=== PATIENT | female | born 1950 | race African-American/Black ===

== ENCOUNTER 2016-12-26 12:22 | Inpatient (IN) | payer MEDICARE, OTHER ==
--- NOTE | ~2016-12-26 | CO ---
Unit #: [id number] #: [id number] Patient: ELIANA HENRIQUEZ [id number] [address] [place], [place] [address] [id number] I MR#: [id number] NAME: ELIANA HENRIQUEZ. ROOM: 323 Age: 66 Sex: F Admission Date: 12/26/2016 : 1950 Attending Physician: Tracee Haji M.D. Primary Care Physician: Compa Arango M.D. Consultation Date: 12/27/2016 CONSULTATION REPORT REASON FOR CONSULTATION Pneumonia. HISTORY OF PRESENT ILLNESS A 66-year-old female, known to Dr. Castellano, who has COPD; chronic respiratory failure; history of pulmonary aspergillosis, unknown details; and ongoing active tobacco use up until recently, presents with a 2-day history of shortness of breath. She had a T-max here in the hospital of 101.3. She now is 99.6. She does feel somewhat better. She has cough, wheeze, thick brown sputum production. She denies chest pain or hemoptysis. PAST MEDICAL HISTORY Remarkable for COPD; chronic respiratory failure; pulmonary aspergillosis, details unclear; coronary artery disease; diastolic dysfunction; diabetes; hypothyroidism; peripheral vascular disease; anemia, MEDICATIONS At home, she has no idea what inhaled medicines or any other medicines that she is on. According to the med rec sheet, she is on aspirin, Lortab, Synthroid, Coreg, Lipitor, glipizide, Ventolin, Plavix, Norvasc, Neurontin, iron, calcitriol, Zyloprim, Humulin. According to the dictated EHR report, she is also on Symbicort and Spiriva. ALLERGIES Levaquin and pineapple. SOCIAL HISTORY EHR states she is still smoking a pack a day. She said she quit 3 months ago. She lives at home by herself. She had amputation on the right late last year and she still does not have a prostatic. FAMILY HISTORY No familial lung disease. REVIEW OF SYSTEMS No chest pain, palpitations, no hemoptysis. No hematemesis, melena, hematochezia, hematuria, dysuria. No unexplained focal weakness, paresthesias. She states she cannot walk, but that is because she has not been fit with her prosthesis. Further review of systems negative. PHYSICAL EXAMINATION GENERAL: Reveals a lady, who is in no acute distress, but does have rhonchi. She had a T-max of 101.3, now 99.6; pulse 91; respiratory rate Unit #: [id number] #: [id number] Patient: ELIANA HENRIQUEZ 17; blood pressure is 144/73. She is 5 feet 7 inches, 224, BMI of 35. HEENT: Pupils are equal, round, and reactive to light. Sclerae anicteric. Head atraumatic. NECK: Supple. No supraclavicular or cervical adenopathy appreciated. Mucous membranes moist. Mallampati class IV oropharynx. CHEST: Expiratory wheeze. Scattered rhonchi. No definite consolidation. CARDIAC: Reveals regular rate and rhythm. No pathologic murmur, rub, or gallop. ABDOMEN: Soft and nontender. No hepatomegaly or rebound. EXTREMITIES: Reveal no clubbing, cyanosis, or edema. No calf tenderness on the left. She is an amputee on the right. It has a very large bandage and protective boot on it. SKIN: Warm and dry. NEUROLOGIC: No definite unexplained focal neurologic deficits. DIAGNOSTIC STUDIES LABORATORY RESULTS: BUN is 14, creatinine is 1.1. Lactic acid 1.1. White blood cell count is 9, hemoglobin 12.7, and platelet count is 149. No eosinophilia. Flu screen negative. Urinalysis; 3+ protein. There was glucosuria. 5 to 10 red cells. Blood cultures performed and are pending. Sputum has not been collected, but in the past she has had Pseudomonas and Aspergillus. IMAGING STUDIES: Chest x-ray, left hemidiaphragm elevation. There are bibasilar infiltrates. CARDIOVASCULAR STUDIES: Rhythm strip, sinus tachycardia. IMPRESSION 1. Pneumonia. 2. Chronic obstructive pulmonary disease with exacerbation and bronchospasm. 3. Chronic respiratory failure. 4. Ongoing active tobacco use, possibly quit recently. 5. Coronary artery disease. 6. Aspergillus in her sputum many years ago, unknown details. PLAN Maximize pulmonary status with steroids and nebulized bronchodilators. Hyperglycemia has been noted, but she is very bronchospastic. Hopefully, she will improve. We can decrease her steroids tomorrow. Agree with current antibiotics and we will adjust as needed after cultures return. Certainly, no smoking is a great benefit. Hopefully, family would be able to bring in her inhaled medications, so we can provide little bit better database. Thank you very much for allowing me to participate in the care of Ms. Henriquez. Dictated by... Viraj Hernandez/uriel TD: 12/27/2016 17:48 JOB #: [id number] CC: Compa Arango M.D. Unit #: [id number] #: [id number] Patient: ELIANA HENRIQUEZ CONSULTATION REPORT X Zane Rico MD X CONSULTATION REPORT
--- NOTE | ~2016-12-26 | CR72 ---
[facility] A Service of [facility] RADIOLOGY TEXT RESULTS PATIENT: ELIANA BOLDEN LOCATION: [facility] : 54 UNIT #: [id number] AGE: [address]: Robe Tamez MD SEX: F ORDER DR: [id number] [facility] [address] [place], [place] [address] [id number] MR#: [id number] #: [id number] NAME: ELIANA BOLDEN. : 1950 SEX: F STUDY DATE/TIME: 12/26/2016 UNIT: [facility] ROOM: STUDY DESCRIPTION: CR Chest Single View Portable Attending Physician: Robe Tamez M.D. Ordering Physician: Ed Lucien Forde M.D. Primary Care Physician: Compa Arango M.D. MEDICAL IMAGING REPORT This report is preliminary unless electronic signature is present EXAM Chest portable 12/26/2016 1144 hours. HISTORY 66-year-old with history of hypertension, diabetes, TIA, COPD and aortic aneurysm complaining of cough and fever for 3 days. COMPARISON 04/30/2016 FINDINGS Portable upright chest demonstrates stable cardiomegaly. There is diffuse interstitial change in both lungs with more focal density in the left retrocardiac region, which could represent atelectasis and/or pneumonia. IMPRESSION 1. Stable cardiomegaly and elevation of the left hemidiaphragm. 2. There is diffuse interstitial change throughout both lungs which could represent interstitial edema or interstitial pneumonitis. There is suggestion of more focal density in the left retrocardiac region which could represent airspace pneumonia or atelectasis. Consider further evaluation with a 2-view chest film to further evaluate the left lung base. Dictated by... Sheeba Murphy M.D. THIS IS AN ELECTRONICALLY VERIFIED REPORT Sheeba Murphy M.D. at 12/26/2016 2:30 PM Venancio [facility] A Service of [facility] RADIOLOGY TEXT RESULTS PATIENT: ELIANA BOLDEN LOCATION: [facility] #: [id number] : [birth year] UNIT #: [id number] AGE: [address]: Robe Tamez MD SEX: F ORDER DR: TD: 12/26/2016 14:19 JOB #: [id number] MEDICAL IMAGING REPORT COPY
--- NOTE | ~2016-12-26 | DS ---
Unit #: [id number] #: [id number] Patient: ELIANA HENRIQUEZ [id number] [address] [address] [id number] I MR#: [id number] NAME: ELIANA HENRIQUEZ. ROOM: 323 Age: 66 Sex: F Admission Date: 12/26/2016 : 1950 Discharge Date: 12/30/2016 Attending Physician: Anastasia Dominguez M.D. Primary Care Physician: Compa Arango M.D. DISCHARGE SUMMARY PRINCIPAL DIAGNOSES 1. Sepsis secondary to community-acquired pneumonia. 2. Acute exacerbation of chronic obstructive pulmonary disease. 3. Diabetes mellitus type 2, insulin requiring and uncontrolled with hemoglobin A1C of 8.6. 4. Chronic hypercapnic hypoxic respiratory failure, maintained on 2 L of oxygen per nasal cannula continuously. 5. Thrombocytopenia. 6. Coronary artery disease. 7. Hypertension. 8. 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 9. Peripheral arterial disease. 10. Obesity. 11. Iron deficiency anemia. 12. Gout. 13. Hypothyroidism. 14. History of pulmonary aspergillosis. 15. Mild protein malnutrition. CONSULTANTS 1. Dr. Rico, pulmonology. 2. Dr. Marrero, endocrinology. PROCEDURES 1. Chest x-ray on December 26, 2016 with cardiomegaly and elevation of the left hemidiaphragm. Diffuse interstitial changes throughout both lungs are noted. There is a more focal density in the left retrocardiac region concerning for pneumonia. 2. Chest x-ray on December 28, 2016 with moderate lung volumes, continued left-sided volume loss with basilar atelectasis. Diffuse interstitial prominence noted. HOSPITAL COURSE Ms. Henriquez is a 66-year-old -Dominican female with a history of chronic respiratory failure, who presents to the emergency department with cough and fever. Please refer to H and P for further details. Patient did have a fever of 101 and chest x-ray was concerning for pneumonia. Her blood pressure was also significantly elevated at 200/97. Patient was subsequently admitted. Patient was placed on broad spectrum antibiotic therapy given recent stay at [place] within the last three months. She was also placed on IV steroids and nebulizer treatments. Dr. Rico was consulted. Sputum has Unit #: [id number] #: [id number] Patient: ELIANA HENRIQUEZ revealed only normal dylon. The patient has remained fever free for several days and does not have any evidence of leukocytosis throughout the hospitalization. I am going to change her to Vantin therapy and she can complete antibiotics as an outpatient. I will also arrange for a home nebulizer if she does not already have one. Patient unfortunately had significant hyperglycemia due to her steroid therapy. Her sugars were running over 500s despite increasing insulin dose. Dr. Marrero was consulted and patient was placed on Humulin N U-100 which I will continue for about a month at home and then she can return to her insulin as she was previously dosing. longterm she would best benefit from a long-acting insulin in addition to NovoLog and/or regular insulin with meals only. This can be further monitored by Dr. Arango. The patient's other chronic conditions remain stable. She will be discharged home later today. DISCHARGE CONDITION Stable. DISCHARGE STATUS Discharge to home. DISCHARGE MEDICATIONS 1. Ventolin inhaler two puffs q.i.d. p.r.n. for shortness of breath. 2. DuoNeb nebulizer treatments 3 mL q.6 h. p.r.n. for shortness of air. 3. Oxygen at 2 L per nasal cannula. 4. Symbicort 160/4.5 mcg two puffs b.i.d. 5. Prednisone 10 mg tablet four tablets for two days then three tablets for two days then two tablets for two days then one tablet for two days then discontinue. 6. Neurontin 400 mg t.i.d. 7. Benadryl 25 mg p.o. b.i.d. p.r.n. for itching. 8. Coreg 6.25 mg p.o. b.i.d. 9. Norvasc 10 mg daily. Note this is a dose increase. 10. Colace 100 mg b.i.d. 11. Lipitor 20 mg q.h.s. 12. Hydralazine 25 mg three tablets p.o. t.i.d. With one refill given. 13. Lisinopril 20 mg b.i.d. 14. Humulin N U-100 40 units subcu before breakfast while on prednisone. This can be dropped off if any hypoglycemia. 15. She will continue a regular insulin sliding scale with meals. 16. Ferrous gluconate 324 mg daily. 17. Allopurinol 100 mg daily. 18. Aspirin 81 mg daily. 19. Lortab 10/325 one to two tablets p.o. q.6 h. p.r.n. for pain. 20. Plavix 75 mg daily. 21. Levothyroxine 50 mcg daily. 22. Calcitriol 0.25 mcg daily. 23. Vantin 200 mg p.o. b.i.d. for seven days. Please note I have discontinued glipizide given I do not suspect the patient is getting much benefit. DISCHARGE INSTRUCTIONS 1. The patient was instructed to follow a heart-healthy CC diet. 2. She is to continue Accu-Cheks at least three times daily at home. 3. She can increase her activity as tolerate. Unit #: [id number] #: [id number] Patient: ELIANA HENRIQUEZ 4. To wear her oxygen at all times. FOLLOWUP 1. The patient will follow up with Dr. Castellano per his instructions. 2. She should follow up with Dr. Arango in two weeks. Time spent on discharge 47 minutes. Dictated by... Anastasia Dominguez M.D. DIANA/kristina TD: 01/01/2017 21:05 JOB #: [id number] DISCHARGE SUMMARY X Anastasia Dominguez MD X DISCHARGE SUMMARY
--- NOTE | ~2016-12-26 | DS ---
Unit #: [id number] #: [id number] Patient: ELIANA BOLDEN [id number] [address] [place], [place] [address] [id number] I MR#: [id number] NAME: ELIANA BOLDEN. ROOM: 323 Age: 66 Sex: F Admission Date: 12/26/2016 : 1950 Discharge Date: 01/03/2017 Attending Physician: Anastasia Dominguez M.D. Primary Care Physician: Compa Arango M.D. DISCHARGE SUMMARY PRINCIPAL DIAGNOSES (CONTINUED) 16. Symptomatic gastroesophageal reflux disease. PROCEDURES (CONTINUED) 3. Chest x-ray on December 31, 2016, with no significant change in bibasilar infiltrate. HOSPITAL COURSE (CONTINUED) Patient was not discharged home upon previous discharge date given she was still having significant sputum production. Unfortunately, she continued to have significant wheezing and cough and required some extra doses of Depo-Medrol. Sputum culture remained negative. After Depo-Medrol, in addition to PPI therapy as outlined below, patient's breathing has improved significantly. She has completed an eight-day course of cefepime in the hospital, and while likely treatment is appropriate, she does have a consolidative change in her left base, so I am going to give her a few more days of Vantin to take as an outpatient. She will see Dr. Castellano in one week and will have a CT of the chest as an outpatient if no improvement on chest x-ray. Patient kept complaining of chest pain which was always nocturnal. Troponin was unremarkable, and EKG was unremarkable. A followup chest x-ray was without change. I placed her on PPI therapy and her symptoms improved significantly. This may have been contributing perhaps to her wheezing and will continue her on PPI therapy at home. Today, patient is clinically stable and will be discharged home. DISCHARGE CONDITION Stable. DISCHARGE STATUS Discharge to home. DISCHARGE MEDICATIONS 1. Ventolin inhaler 2 puffs 4 times daily p.r.n. for shortness of breath. 2. Combivent nebulizer treatments 3 mL 4 times daily p.r.n. for shortness of breath. 3. Symbicort 160/4.5 mcg 2 puffs b.i.d. 4. Prednisone 10 mg tablets, 4 tablets daily for 3 days, then 3 tablets for 3 days, then 2 tablets for 3 days, then 1 tablet for 3 days, then discontinue. 5. Neurontin 400 mg t.i.d. 6. Benadryl 25 mg q.12 hours p.r.n. for itching. Unit #: [id number] #: [id number] Patient: ELIANA BOLDEN 7. Coreg 6.25 mg b.i.d. 8. Norvasc 10 mg daily. 9. Colace 100 mg b.i.d. 10. Lipitor 20 mg at bedtime. 11. Hydralazine 25 mg 3 tablets p.o. t.i.d. 12. Lisinopril 20 mg b.i.d. 13. Humulin R sliding scale with meals. 14. Humulin N U-100 at 50 units subcutaneously daily before breakfast only while on prednisone, then this should be discontinued. 15. Ferrous sulfate 325 mg daily. 16. Allopurinol 100 mg daily. 17. Aspirin 81 mg daily. 18. Lortab 10/325 at 1-2 tablets p.o. q.6 hours p.r.n. for pain, number given 40. 19. Plavix 75 mg daily. 20. Protonix 40 mg b.i.d. 21. Glipizide 10 mg b.i.d. 22. Levothyroxine 50 mcg p.o. daily. 23. Calcitriol 0.25 mcg p.o. daily. 24. Vantin 200 mg p.o. b.i.d. for another 6 days. DISCHARGE INSTRUCTIONS 1. Patient was instructed to follow a heart-healthy diet. 2. She will continue Accu-Cheks as previously dictated. 3. She will increase her activity as tolerated. FOLLOWUP Patient will follow up with Dr. Castellano in one week and will have a chest x-ray at that time. If infiltrate persists greater than three to four weeks, she will have a CT scan of the chest. She will follow up with her primary care physician as previously dictated. Time spent on discharge 35 minutes. Dictated by... Anastasia Dominguez M.D. Itz TD: 01/04/2017 20:59 JOB #: [id number] DISCHARGE SUMMARY X Anastasia Dominguez MD DISCHARGE SUMMARY
--- NOTE | ~2016-12-26 | EKG ---
PATIENT: ELIANA BOLDEN UNIT #: [id number] Ventricular Rate: 81 BPM Atrial Rate: 81 BPM P-R Interval: 160 ms QRS Duration: 106 ms Q-T Interval: 386 ms QTC Calculation(Bezet): 448 ms P Prince: 41 degrees Calculated R Prince: -37 degrees Calculated T Prince: 12 degrees Diagnosis Line: Normal sinus rhythm Diagnosis Line: Left axis deviation Diagnosis Line: Otherwise normal ECG Diagnosis Line: When compared with ECG of 26-FEB-2016 06:05, Diagnosis Line: Non-specific change in ST segment in Anterior Diagnosis Line: leads Diagnosis Line: T wave inversion no longer evident in Inferior Diagnosis Line: leads Diagnosis Line: T wave inversion no longer evident in Anterior Diagnosis Line: leads Diagnosis Line: QT has shortened Diagnosis Line: Confirmed by MARGUERITE CLEMONS MD ([id number]) on 01/01/2017 Diagnosis Line: 6:20:16 PM INTERPRETING MD: DEONTE BARAHONA
--- NOTE | ~2016-12-26 | HP ---
Unit #: [id number] #: [id number] Patient: ELIANA BOLDEN [id number] [address] [place], [place] [address] [id number] I MR#: [id number] NAME: ELIANA BOLDEN. ROOM: 08064 Age: 66 Sex: F Admission Date: 12/26/2016 : 1950 Attending Physician: Tracee Haji M.D. Primary Care Physician: Compa Arango M.D. HISTORY AND PHYSICAL CHIEF COMPLAINT Cough and fever for three days. HISTORY OF PRESENT ILLNESS The patient is a 66-year-old female with a history of COPD, chronic respiratory failure, coronary artery disease, diastolic dysfunction, hypertension, brought to the emergency room with a cough and fever for the last three days. The patient stated the patient has been short of breath associated with a productive cough mixed with a blood streak and fever high up to 101.3. The patient had a chest x-ray that shows concerning for the pneumonia/pneumonitis and patient is being admitted for the above reasons. The patient's blood pressure is 200/97 and the lactate is 1.1. PAST MEDICAL HISTORY COPD, chronic respiratory failure, history of pulmonary aspergillosis, hypertension, type 2 diabetes mellitus, hyperlipidemia, coronary artery disease, status post PTCA, chronic diastolic congestive heart failure, hypothyroidism, peripheral vascular disease, aortic aneurysm, history of iron deficiency anemia, history of a chronic hypoxic hypercarbic respiratory failure. PAST SURGICAL HISTORY Abdominal aortic aneurysm with subsequent bilateral lower extremity paralysis, left carotid endarterectomy, and the status post right below the knee amputation. ALLERGIES Levaquin and pineapple. HOME MEDICATIONS She is on aspirin, Lortab, Lotensin, Klonopin, Lantus, Dulcolax, levothyroxine, Coreg, Lipitor, glipizide, K-Dur, Ventolin, Plavix, Aldactone, Prilosec, Spiriva, Symbicort, furosemide, Augmentin. SOCIAL HISTORY Continues to smoke half a pack per day, no alcohol use at home, no illicit drug abuse, wheelchair bound due to paralysis. FAMILY HISTORY Positive for coronary artery disease. REVIEW OF SYMPTOMS Unit #: [id number] #: [id number] Patient: ELIANA BOLDEN Fourteen-point review of symptoms performed and only pertinent positive findings as described above. PHYSICAL EXAMINATION GENERAL APPEARANCE: On examination the patient is lying on a bed not in acute distress. VITAL SIGNS: Temperature 101.3, pulse 112, respiratory rate 27, blood pressure 200/97, sating 92% at 2 L nasal cannula. HEENT: Head atraumatic, normocephalic. Pupils equal, round and reacting to light and accommodation. Poor dentition. Missing teeth. NECK: Supple. Trachea midline. LUNGS: Decreased breath sounds. Crackles in the bases. Prolonged expiratory phase. CARDIAC: Heart sounds distant. Regular rate and rhythm. ABDOMEN: Soft, positive bowel sounds. EXTREMITIES: Status post right BKA. NEUROLOGIC: Awake, alert and oriented. DIAGNOSTIC STUDIES LABORATORY DATA: Glucose 332, BUN 12, creatinine 0.8, sodium 135, potassium 3.5, chloride 100, bicarb 29, calcium 8.6, total protein 7.1, AST 19, ALT 14, lactic acid is 1.1, WBCs 6.2, hemoglobin 12, hematocrit 38.1, platelets 133. UA shows 3+ protein, 500 glucose, 2+ blood. Flu screen is negative. IMAGING: Chest x-ray shows the interstitial pneumonitis versus pneumonia. ASSESSMENT 1. Pneumonia/pneumonitis. 2. Chronic obstructive pulmonary disease on home oxygen. 3. Chronic respiratory failure. 4. Uncontrolled diabetes mellitus. PLAN 1. Plan to admit the patient to the inpatient with the telemetry. 2. Continuer with the IV antibiotics with the Maxipime and Zithromax. 3. Continue with the nebs. 4. Check the ABG and chest x-ray PA and lateral view at a.m. 5. Will have the pulmonary consult as the patient has been known to the pulmonary team. 6. Repeat the labs again in the morning. 7. Further recommendations will follow as more lab results are available. Dictated by Viraj Mccarty TD: 12/26/2016 17:38 JOB #: [id number] Unit #: [id number] #: [id number] Patient: ELIANA BOLDEN HISTORY AND PHYSICAL X X HISTORY AND PHYSICAL
--- NOTE | ~2016-12-26 | CR72 ---
[facility] A Service of [facility] RADIOLOGY TEXT RESULTS PATIENT: ELIANA BOLDEN LOCATION: [facility] : 54 UNIT #: [id number] AGE: [address]: Anastasia Dominguez MD SEX: F ORDER DR: [id number] [facility] [address] [place], [place] [address] [id number] I MR#: [id number] Acc #: [id number] NAME: ELIANA BOLDEN. : 1950 SEX: F STUDY DATE/TIME: 12/31/2016 6:23 UNIT: [address] ROOM: [facility] STUDY DESCRIPTION: CR Chest Single View Portable Attending Physician: Anastasia Dominguez M.D. Ordering Physician: Shamir Castellano M.D. Primary Care Physician: Compa Arango M.D. MEDICAL IMAGING REPORT This report is preliminary unless electronic signature is present EXAM Portable chest 12/31/2016 HISTORY 66-year-old female with shortness of air and fever for 5 days. Cough. Hypertension. COMPARISON Chest 12/28/2016. FINDINGS Frontal chest demonstrates persistent mild bibasilar atelectasis. No pneumothorax. Heart size and mediastinum within normal limits. Pulmonary vasculature is unremarkable. IMPRESSION No significant change in bibasilar atelectasis/infiltrate. Dictated by... Edison Ayon M.D. THIS IS AN ELECTRONICALLY VERIFIED REPORT Edison Ayon M.D. at 12/31/2016 3:54 PM OCTAVIO/kvng TD: 12/31/2016 10:15 JOB #: [id number] MEDICAL IMAGING REPORT COPY
--- NOTE | ~2016-12-26 | CR72 ---
[facility] A Service of [facility] RADIOLOGY TEXT RESULTS PATIENT: ELIANA BOLDEN LOCATION: [facility] 323- : [birth year] UNIT #: [id number] AGE: [address]: Anastasia Dominguez MD SEX: F ORDER DR: [id number] [facility] [address] [place], [place] [address] [id number] I MR#: [id number] Acc #: [id number] NAME: ELIANA BOLDEN. : 1950 SEX: F STUDY DATE/TIME: 12/28/2016 17:38 UNIT: [address] ROOM: [facility] STUDY DESCRIPTION: CR Chest Single View Portable Attending Physician: Tracee Haji M.D. Ordering Physician: Zane Rico M.D. Primary Care Physician: Compa Arango M.D. MEDICAL IMAGING REPORT This report is preliminary unless electronic signature is present EXAM Portable chest HISTORY Cough, congestion, fever, shortness of air x2 weeks. COMPARISON 12/26/2016 FINDINGS Study demonstrates moderate lung volumes. Radiodensity projects over the left lower chest presumably artifact. Continued left-sided volume loss with probable left basilar atelectasis. A small amount of right basilar atelectasis as well as diffuse interstitial prominence could represent background interstitial disease or fibrosis or edema. Upper lungs remain clear. Heart size within normal limits. Mediastinum unremarkable. No invasive tubes or lines. No visible pneumothorax. Dictated by... Brendan Ackerman M.D. THIS IS AN ELECTRONICALLY VERIFIED REPORT Brendan Ackerman M.D. at 12/29/2016 5:04 PM Dannielle TD: 12/29/2016 07:47 JOB #: [id number] MEDICAL IMAGING REPORT COPY
--- NOTE | ~2016-12-26 | CO ---
Unit #: [id number] #: [id number] Patient: ELIANA BOLDEN [id number] [address] [place], [place] [address] [id number] I MR#: [id number] NAME: ELIANA BOLDEN. ROOM: 323 Age: 66 Sex: F Admission Date: 12/26/2016 : 1950 Attending Physician: Anastasia Dominguez M.D. Primary Care Physician: Compa Arango M.D. Consultation Date: 12/29/2016 CONSULTATION REPORT HISTORY OF PRESENT ILLNESS This is a 66-year-old female with history of type 2 diabetes mellitus, COPD, chronic respiratory failure, active tobacco use, who has been admitted with shortness of air and pneumonia and COPD exacerbation. She is being treated with the IV steroids. Her blood sugar has been running 4 to 500 mg/dL. I note the patient's Solu-Medrol was discontinued just now. Blood sugar has been still. Just now she has been switched to prednisone starting tomorrow. I have been asked to see the patient for further management. PAST MEDICAL HISTORY COPD, chronic respiratory failure, coronary artery disease, type 2 diabetes mellitus, hypothyroidism, peripheral vascular disease, pulmonary aspergillosis, and anemia. HOME MEDICATIONS List is reviewed. The patient was taking glipizide and some Humulin insulin at home on unknown doses. Other medication list includes Synthroid, Coreg, Ventolin, Plavix, Norvasc, Neurontin, calcitriol. ALLERGIES To Levaquin and pineapple. SOCIAL HISTORY Continues to smoke about a pack per day. Lives by herself. PAST SURGICAL HISTORY Abdominal aortic aneurysm surgery, left carotid endarterectomy, right below-knee amputation. REVIEW OF SYSTEMS A 10-point review of systems is completed, please see HPI. PHYSICAL EXAMINATION GENERAL: She is awake, alert, oriented to time, place, and person. VITAL SIGNS: Stable. Temperature 98.1, pulse 91, respirations 16, and blood pressure is 172/80. HEENT: EOMI. Pupils equally reactive to light. NECK: Supple. No thyromegaly noted. CHEST: Good air entry. CVS: Regular rhythm. No murmurs. ABDOMEN: Soft, nontender. Bowel sounds positive. EXTREMITIES: Right below-knee amputations. Unit #: [id number] #: [id number] Patient: ELIANA BOLDEN DIAGNOSTIC STUDIES LABORATORY RESULTS: Reviewed. Creatinine is 1.0. A1c is 8.6. ASSESSMENT 1. Type 2 diabetes mellitus with acute hyperglycemia secondary to IV steroids. 2. Acute on chronic respiratory failure. PLAN Discontinue Levemir. Start the patient on the NPH 40 units before each prednisone dose. NovoLog 10 units each meal. Continue medium dose supplement sliding scale. Continue to monitor Accu-Cheks q.4 hours. Cover with supplemental insulin as needed. We will continue for further management. Dictated by... Viraj Contreras/uriel TD: 12/30/2016 05:02 JOB #: [id number] CONSULTATION REPORT X Yuniel Marrero MD X CONSULTATION REPORT
[~2016-12-26 12:22] MED LIST: ACETAMINOPHEN PO; ALBUTEROL MININEB NEB; ALBUTEROL17 GM INH; ALDACTONE25 MG PO; AMLODIPINE BESY10 MG PO; ASPIRIN EC81 M1 PO; ASPIRIN81 M1 PO; ASPIRIN81 M2 PO; ASPIRIN81 MG PO; ATORVASTATIN CA80 MG PO; ATRAC-TAIN142 GM TOP; ATRAC-TAIN142 GM TP; AUGMENTIN PO; AUGMENTIN875 M1 DOB; AUGMENTIN875 MG PO; BACTRIM DS TABL1 TAB PO; BACTROBAN22 GM TP; BENAZEPRIL HCL40 MG PO; BENAZEPRIL PO; BENZAPRIL PO; CARVEDILOL12.5 MG PO; CARVEDILOL3.125 MG PO; CLOPIDOGREL75 MG PO; COLACE PO; COMBIVENT INH14.7 GM INH; COMBIVENT RESPIM4 GM IH; COREG12.5 MG PO; COREG3.125 MG PO; DAKIN'S MODIF1000 ML EXT; DIFLUCAN PO; DOXEPIN PO; DULCOLAX5 MG PO; EFFER-K 20 MEQ20 MEQ PO; FERROUS GLUCON324 MG PO; FLAGYL PO; FUROSEMIDE40 MG PO; GABAPENTIN300 M2 PO; GABAPENTIN300 MG PO; GLIPIZIDE10 MG PO; GLUCOPHAGE500 MG; GLUCOTROL PO; GLUCOTROL10 MG PO; GRANULEX SPR113.4 GM TOP; HYDRALAZINE HC100 MG; HYDRALAZINE HCL25 MG PO; HYDROCODONE-APA1 T54 PO; IMDUR-ER60 M1 DOB; IMODIUM2 MG PO; K-DUR20 ME1 PO; KCL PO; KLONOPIN1 MG PO; KLOR-CON PO; LANTUS100 U/ML SUBQ; LASIX PO; LEVAQUIN PO; LEVOTHROID25 MCG PO; LEVOTHYROXINE25 MCG PO; LIPITOR PO; LIPITOR20 MG PO; LIPITOR80 MG PO; LISINOPRIL PO; LOPRESSOR PO; LORTAB 10-3251 EACH PO; LORTAB 10/500 T1 TAB PO; LORTAB 101 TAB 10/5 PO; LORTAB PO; LOTENSIN PO; LOTENSIN40 MG PO; MAG-OX 400400 M1 DOB; MAGOX 400400 MG PO; METFORMIN HCL500 M1 PO; METFORMIN PO; MICRONASE5 M2 PO; NEURONTIN PO; NEURONTIN300 MG PO; NITROSTAT0.4 MG SL; NORCO1 TAB 10/3 PO; NORVASC PO; OMNICEF300 MG PO; PERCOCET5/325 PO; PREDNISONE5 MG PO; PRILOSEC PO; PRILOSEC20 M1 PO; SPIRIVA18 MCG INH; SYMBICORT INH; SYNTHROID PO; TYLOX 5/500 CAP1 CAP PO; VOLTAREN75 MG PO; Z-PACK; [UNRECOGNIZED DRUG - OTHER] PO; [UNRECOGNIZED DRUG - REMARK]
[2016-12-26 13:21] LABS: INFLUENZA A NEG (NEG); INFLUENZA B NEG (NEG)
[2016-12-26 13:49] LABS: URINE SOURCE CLEAN CATCH
[2016-12-26 14:08] LABS: URINE APPEARANCE CLEAR; URINE BILIRUBIN NEG (NEG); URINE BLOOD 2+ (NEG); URINE COLOR YELLOW; URINE GLUCOSE 500 MG/DL (NEG); URINE KETONE NEG (NEG); URINE LEUKOCYTE ESTERASE NEG (NEG); URINE NITRATE NEG (NEG); URINE PH 6.5 (5-8); URINE PROTEIN 3+ (NEG); URINE SPECIFIC GRAVITY 1.014 (1.003-1.035); URINE UROBILINOGEN 0.2 MG/DL (NEG)
[2016-12-26 14:11] LABS: URINE BACTERIA AUWI NEG (NEGATIVE); URINE SQUAMOUS EPITHELIAL CELL NONE SEEN /[HPF]; UWBCS1 AUWI 0-2 (0-5)
[2016-12-26 14:13] LABS: CULTURE INDICATED? NO
[2016-12-26 14:22] LABS: BASOPHIL% 0.7 % (0-2.5); HEMATOCRIT 38.1 % (35.0-45.0); LYMPHOCYTE# 0.8 X10e3 (1.0-3.5); LYMPHOCYTE% 12.8 % (17.0-45.0); MEAN CELL VOLUME 88.8 FL (83-96); MEAN CORPUSCULAR HGB CONC 31.5 g/dL (30-36); MEAN PLATELET VOLUME 9.3 FL (6.5-11.5); MONOCYTE# 0.8 X10e3 (0-1.0); MONOCYTE% 13.5 % (3.0-12.0); NEUTROPHIL# 4.5 X10e3 (1.5-7.1); PLATELET COUNT 133 X10e3 (140-420); RED BLOOD COUNT 4.29 X10e (3.90-5.30); RED CELL DISTRIBUTION WIDTH 15.9 % (11.0-15.5); WHITE BLOOD COUNT 6.2 X10e3 (4.0-10.5)
[2016-12-26 14:30] LABS: DIFF IND NO
[2016-12-26 14:51] LABS: ALBUMIN SERUM 3.3 g/dL (3.5-5.0); ALKALINE PHOSPHATASE 84 U/L (32-92); ALT (SGPT) 14 U/L (10-40); AST (SGOT) 19 U/L (10-42); BILIRUBIN, DIRECT 0.1 mg/dL (0.0-0.2); BILIRUBIN,INDIRECT 0.3 mg/dL (0.0-0.9); BILIRUBIN,TOTAL 0.4 mg/dL (0.2-2.0); BLOOD UREA NITROGEN 12 mg/dL (9-23); CALCIUM SERUM 8.6 mg/dL (8.4-10.2); CARBON DIOXIDE 29 mmol/L (22-31); CHLORIDE 100 mmol/L (100-111); CREATININE SERUM 0.8 mg/dL (0.6-1.4); GLOM FILT RATE Estimated ABOVE60 mL/min (>60); GLUCOSE FASTING 332 mg/dL (70-110); POTASSIUM 3.5 mmol/L (3.5-5.1); PROTEIN TOTAL SERUM 7.1 g/dL (6.0-8.3); SODIUM 135 mmol/L (135-145)
[2016-12-26] MEDS ORDERED: AMLODIPINE BESYL5 MG PO (18:50)
[2016-12-26] MEDS ORDERED: ALLERGY RELIEF25 MG PO (18:51)
[2016-12-26] MEDS ORDERED: FEOSOL PO (18:52)
[2016-12-26] MEDS ORDERED: CALCITRIOL0.25 MC1 PO (18:53)
[2016-12-26] MEDS ORDERED: ZYLOPRIM100 MG PO (18:54)
[2016-12-26] MEDS ORDERED: HUMULIN R500 U/ML (18:55)
[2016-12-26] MEDS ORDERED: DOCUSATE SODIU100 MG PO (18:56)
[2016-12-26] MEDS ORDERED: NEURONTIN100 MG PO (18:57)
[2016-12-27 05:57] LABS: BASOPHIL% 0.5 % (0-2.5); EOSINOPHIL# 0.1 X10e3 (0-0.7); EOSINOPHIL% 0.6 % (0.0-7.0); HEMATOCRIT 40.4 % (35.0-45.0); HEMOGLOBIN 12.7 gm/dL (12.0-16.0); LYMPHOCYTE# 1.1 X10e3 (1.0-3.5); MEAN CELL VOLUME 89.7 FL (83-96); MEAN CORPUSCULAR HEMOGLOBIN 28.2 PG (28-34); MEAN CORPUSCULAR HGB CONC 31.4 g/dL (30-36); MEAN PLATELET VOLUME 10.5 FL (6.5-11.5); NEUTROPHIL# 6.8 X10e3 (1.5-7.1); NEUTROPHIL% 75.9 % (40-75); PLATELET COUNT 149 X10e3 (140-420); RED CELL DISTRIBUTION WIDTH 15.8 % (11.0-15.5)
[2016-12-27 05:59] LABS: DIFF IND NO
[2016-12-27 06:32] LABS: BLOOD UREA NITROGEN 14 mg/dL (9-23); BUN/CREATININE RATIO 12.72; CARBON DIOXIDE 28 mmol/L (22-31); CHLORIDE 103 mmol/L (100-111); CREATININE SERUM 1.1 mg/dL (0.6-1.4); GLOM FILT RATE Estimated ABOVE60 mL/min (>60); GLUCOSE FASTING 304 mg/dL (70-110); POTASSIUM 3.7 mmol/L (3.5-5.1); SODIUM 135 mmol/L (135-145)
[2016-12-28 05:57] LABS: HEMATOCRIT 39.5 % (35.0-45.0); HEMOGLOBIN 12.2 gm/dL (12.0-16.0); MEAN CELL VOLUME 90.3 FL (83-96); MEAN CORPUSCULAR HEMOGLOBIN 27.8 PG (28-34); MEAN CORPUSCULAR HGB CONC 30.8 g/dL (30-36); MEAN PLATELET VOLUME 10.7 FL (6.5-11.5); RED BLOOD COUNT 4.37 X10e (3.90-5.30); RED CELL DISTRIBUTION WIDTH 15.5 % (11.0-15.5); WHITE BLOOD COUNT 6.7 X10e3 (4.0-10.5)
[2016-12-28 06:34] LABS: BLOOD UREA NITROGEN 20 mg/dL (9-23); BUN/CREATININE RATIO 22.22; CALCIUM SERUM 8.7 mg/dL (8.4-10.2); CARBON DIOXIDE 29 mmol/L (22-31); CHLORIDE 99 mmol/L (100-111); CREATININE SERUM 0.9 mg/dL (0.6-1.4); GLOM FILT RATE Estimated ABOVE60 mL/min (>60); GLUCOSE FASTING 430 mg/dL (70-110); MAGNESIUM 1.7 mg/dL (1.6-3.0); POTASSIUM 4.3 mmol/L (3.5-5.1); SODIUM 136 mmol/L (135-145)
[2016-12-29 04:15] LABS: BLOOD UREA NITROGEN 25 mg/dL (9-23); CALCIUM SERUM 8.4 mg/dL (8.4-10.2); CARBON DIOXIDE 24 mmol/L (22-31); CHLORIDE 102 mmol/L (100-111); GLOM FILT RATE Estimated ABOVE60 mL/min (>60); MAGNESIUM 1.8 mg/dL (1.6-3.0); POTASSIUM 5.3 mmol/L (3.5-5.1); SODIUM 130 mmol/L (135-145)
[2016-12-29 04:18] LABS: GLUCOSE FASTING 565 mg/dL (70-110)
[2016-12-29 17:45] LABS: IRON SERUM 114 ug/dL (28-170); TOTAL IRON BINDING CAPACITY 249 ug/dL (269-535); TRANSFERRIN 178 mg/dL (192-382); TRANSFERRIN SATURATION 46 % (20-50)
[2016-12-30 09:00] LABS: HEMATOCRIT 40.6 % (35.0-45.0); MEAN CELL VOLUME 87.6 FL (83-96); MEAN CORPUSCULAR HGB CONC 31.9 g/dL (30-36); MEAN PLATELET VOLUME 10.1 FL (6.5-11.5); RED BLOOD COUNT 4.64 X10e (3.90-5.30); RED CELL DISTRIBUTION WIDTH 15.4 % (11.0-15.5); WHITE BLOOD COUNT 8.6 X10e3 (4.0-10.5)
[2016-12-30 09:40] LABS: BLOOD UREA NITROGEN 31 mg/dL (9-23); BUN/CREATININE RATIO 38.75; CALCIUM SERUM 9.1 mg/dL (8.4-10.2); CARBON DIOXIDE 29 mmol/L (22-31); CHLORIDE 99 mmol/L (100-111); CREATININE SERUM 0.8 mg/dL (0.6-1.4); GLOM FILT RATE Estimated ABOVE60 mL/min (>60); GLUCOSE FASTING 270 mg/dL (70-110); POTASSIUM 3.8 mmol/L (3.5-5.1); SODIUM 135 mmol/L (135-145)
[2016-12-30] MEDS ORDERED: HUMULIN N100 U/ML SUBQ (18:24)
[2016-12-31 14:35] LABS: LEGIONELLA AG URINE NEG (NEG)
[2017-01-01 06:40] LABS: HEMATOCRIT 38.1 % (35.0-45.0); HEMOGLOBIN 11.9 gm/dL (12.0-16.0); MEAN CELL VOLUME 87.4 FL (83-96); MEAN CORPUSCULAR HEMOGLOBIN 27.4 PG (28-34); MEAN CORPUSCULAR HGB CONC 31.3 g/dL (30-36); MEAN PLATELET VOLUME 10.1 FL (6.5-11.5); RED BLOOD COUNT 4.35 X10e (3.90-5.30); RED CELL DISTRIBUTION WIDTH 15.1 % (11.0-15.5); WHITE BLOOD COUNT 7.4 X10e3 (4.0-10.5)
[2017-01-01 07:13] LABS: BLOOD UREA NITROGEN 24 mg/dL (9-23); CALCIUM SERUM 8.2 mg/dL (8.4-10.2); CARBON DIOXIDE 28 mmol/L (22-31); CHLORIDE 104 mmol/L (100-111); CREATININE SERUM 0.8 mg/dL (0.6-1.4); GLOM FILT RATE Estimated ABOVE60 mL/min (>60); GLUCOSE FASTING 155 mg/dL (70-110); POTASSIUM 3.4 mmol/L (3.5-5.1); SODIUM 140 mmol/L (135-145)
[2017-01-02] MEDS ORDERED: LISINOPRIL20 MG PO (18:49)
[2017-01-02] MEDS ORDERED: COMBIVENT U/D3 M2 INH (18:50)
[2017-01-02] MEDS ORDERED: SYMBICORT INH (18:51)
[2017-01-02] MEDS ORDERED: HYDRALAZINE HCL25 MG PO (18:53)
[2017-01-02] MEDS ORDERED: PREDNISONE10 MG PO (18:53)
[2017-01-02] MEDS ORDERED: PROTONIX PO (18:54)
[2017-01-02] MEDS ORDERED: VANTIN200 MG PO (18:55)
== END 2017-01-03 01:13 | disposition home health service (06) | DRG 871 ==
LOC: CED 12:22 → CEDOF 16:50 → C3A PCU 18:00
PROVIDERS: Emergency Medicine; Internal Medicine
DX: A41.9 Sepsis, unspecified organism (principal); J18.9 Pneumonia, unspecified organism; J96.21 Acute and chronic respiratory failure with hypoxia; J96.22 Acute and chronic respiratory failure with hypercapnia; J44.1 Chronic obstructive pulmonary disease with (acute) exacerbation; E44.1 Mild protein-calorie malnutrition; Z99.81 Dependence on supplemental oxygen; E11.65 Type 2 diabetes mellitus with hyperglycemia; I25.10 Atherosclerotic heart disease of native coronary artery without angina pectoris; E03.9 Hypothyroidism, unspecified; I73.9 Peripheral vascular disease, unspecified; Z79.4 Long term (current) use of insulin; F17.210 Nicotine dependence, cigarettes, uncomplicated; T38.0X5A Adverse effect of glucocorticoids and synthetic analogues, initial encounter; E66.01 Morbid (severe) obesity due to excess calories; M62.3 Immobility syndrome (paraplegic); K59.00 Constipation, unspecified; G89.29 Other chronic pain; K21.9 Gastro-esophageal reflux disease without esophagitis; I71.4 Abdominal aortic aneurysm, without rupture; G83.89 Other specified paralytic syndromes; M10.9 Gout, unspecified; Z68.35 Body mass index [BMI] 35.0-35.9, adult
CPT/HCPCS: 36415; 71010; 80048; 80076; 81003; 82947; 83036; 83540; 83550; 83605; 83735; 84132; 84484; 85025; 85027; 87040; 87070; 87205; 87449; 87804; 87899; 93005; 94640; 94760; 96361; 96365; 96375; 97110; 97163; 97530; 99285; G8978-GP; G8979-GP; J0360; J0456; J0692; J1040; J1815; J1885; J2270; J2543; J2920; J3260; J3370

== ENCOUNTER 2017-05-23 12:52 | Inpatient (IN) | payer MEDICARE, OTHER ==
[~2017-05-23] VITALS: Ht 170.2 cm; Wt 91.4 kg
--- NOTE | ~2017-05-23 | DS ---
Unit #: [id number] #: [id number] Patient: ELIANA BOLDEN [id number] [place] [id number] [facility]. [place], [place] [address] [id number] I MR#: [id number] NAME: ELIANA BOLDEN ROOM: 469 Age: 66 Sex: F Admission Date: 05/23/2017 : 1950 Discharge Date: 06/03/2017 Attending Physician: Vinicius Thao M.D. Primary Care Physician: Compa Arango M.D. DISCHARGE SUMMARY DISCHARGE DIAGNOSES 1. Right buttocks cellulitis and abscess status post incision and drainage. 2. Hypokalemia. 3. Acute kidney injury. 4. Chronic obstructive pulmonary disease, oxygen dependent. 5. Right below knee amputation. 6. Diastolic dysfunction. 7. Congestive heart failure. 8. Left leg deep vein thrombosis. 9. Acute bleed from right buttocks wound status post resolution. CONSULTANTS 1. Anthony Hong M.D., [facility], incision and drainage. 2. Dr. Law, cardiology, for congestive heart failure. 3. Dr. Constantino Rowe, nephrology, for acute renal failure. 4. Dr. Marrero, endocrinology, for diabetes mellitus. PROCEDURES Sharp excision and debridement of skin and subcutaneous right gluteal tissue for incision and drainage of gluteal abscess. HOSPITAL COURSE This 66-year-old woman with multiple co-morbidities presented with symptoms of fever and swelling, redness, tenderness over the right buttocks, which had increased in size. CAT scan of the abdomen and pelvis demonstrated cellulitis with abscess of the right gluteal soft tissue. The patient was started on empiric IV broad-spectrum antibiotics, Zosyn and vancomycin. She then subsequently underwent incision and drainage of the abscess. Also during her admission, her diabetes was managed with long-acting Levemir insulin and sliding scale insulin coverage. During her admission she was noted to have left leg DVT, which was treated with subcu Lovenox. The Lovenox, then, was transitioned to Eliquis. However, she developed right gluteal bleed. Eliquis was discontinued, following which there was no further bleeding, and Lovenox was resumed for treatment of DVT. The patient is being discharged today to correction facility. Discharge vitals are stable. Hemoglobin is stable. The right gluteal wound demonstrates good granulation tissue. No further bleeding. Her left lower extremity swelling has improved on anticoagulation for treatment of DVT. Her blood sugar is controlled on her current regimen of insulin. Patient Unit #: [id number] #: [id number] Patient: ELIANA BOLDEN will be discharged to correction facility for continued rehabilitation. DISCHARGE MEDICATIONS 1. Combivent Mini-Neb q.i.d. inhaled. 2. Combivent Mini-Neb q.4 hours p.r.n. 3. Gabapentin 400 mg p.o. t.i.d. 4. Magnesium oxide p.o. daily. 5. Benadryl 25 mg p.o. q.12 p.r.n. itching. 6. Levothyroxine 50 mcg p.o. daily. 7. Clonazepam 2 mg p.o. at bedtime. 8. Coreg 6.25 mg p.o. b.i.d. 9. Amlodipine 5 mg p.o. daily. 10. Colace 100 mg p.o. b.i.d. 11. Furosemide 40 mg p.o. b.i.d. 12. Lipitor 20 mg p.o. at bedtime. 13. Lisinopril 20 mg p.o. b.i.d. 14. Ferrous gluconate 325 mg p.o. daily. 15. Allopurinol 100 mg p.o. daily. 16. Aspirin 81 mg p.o. daily. 17. Percocet 10/325 mg tab 1 p.o. q.6 p.r.n. pain. 18. Protonix 40 mg p.o. b.i.d. 19. Calcitriol 0.25 mcg p.o. daily. 20. Lovenox 90 mg subcu q.12 hours. 21. B complex multivitamin tab 1 p.o. once daily. DISCHARGE INSTRUCTIONS Patient being discharged to correction facility for further rehabilitation. Regular dressing changes to the right gluteal wound with wet-to-dry Dakin's b.i.d. Gently irrigate packing to remove. Dictated by... Viraj Garcia/corina TD: 06/03/2017 12:20 JOB #: [id number] DISCHARGE SUMMARY Page 1 of 1 X X DISCHARGE SUMMARY
--- NOTE | ~2017-05-23 | US85 ---
[facility] A Service of [facility] RADIOLOGY TEXT RESULTS PATIENT: ELIANA BOLDEN LOCATION: [facility] 469-01 : [birth year] UNIT #: [id number] AGE: [address]: Jony Klein MD SEX: F ORDER DR: [id number] [facility] [address] [place], [place] [address] [id number] I MR#: [id number] Acc #: [id number] NAME: ELIANA BOLDEN. : 1950 SEX: F STUDY DATE/TIME: 05/28/2017 16:16 UNIT: [facility] ROOM: [facility] STUDY DESCRIPTION: US LE Veins Unilat or Ltd Stdy Attending Physician: Jony Klein M.D. Ordering Physician: Ninoska Humphries A.P.R.N. Primary Care Physician: Compa Arango M.D. MEDICAL IMAGING REPORT This report is preliminary unless electronic signature is present EXAM Ultrasound lower extremity veins HISTORY Left lower extremity swelling and edema for 6-7 months. Increasing severity over 1 week. COMPARISON Bilateral lower extremity venous duplex Doppler 03/28/2015. FINDINGS The left common femoral veins through the left popliteal veins are widely patent. There is normal compressibility with spontaneous and phasic waveforms. The left posterior tibial vein is incompletely compressible and there is a small short-segment echogenic filling defect consistent with thrombus. The peroneal vein notvisualized. IMPRESSION 1. Short segment of deep vein thrombus in the left posterior tibial vein in the calf. 2. Finding was called to the patient's nurse at 17:20 on 05/28/2017 Dictated by... Christian James M.D. THIS IS AN ELECTRONICALLY VERIFIED REPORT Christian James M.D. at 05/29/2017 3:13 PM RPC/rnr TD: 05/28/2017 20:10 JOB #: [id number] [facility] A Service [facility] RADIOLOGY TEXT RESULTS PATIENT: ELIANA BOLDEN LOCATION: [place] [address]- : [birth year] UNIT #: [id number] AGE: [address]: Jony Klein MD SEX: F ORDER DR: MEDICAL IMAGING REPORT Page 1 of 1 COPY
--- NOTE | ~2017-05-23 | CT4 ---
[facility] A Service of [facility] RADIOLOGY TEXT RESULTS PATIENT: ELIANA BOLDEN LOCATION: [facility] 469-01 : [birth year] UNIT #: [id number] AGE: [address]: Brianna Mathews MD SEX: F ORDER DR: [id number] [facility] [address] [place], [place] [address] [id number] I MR#: [id number] Acc #: [id number] NAME: ELIANA BOLDEN. : 1950 SEX: F STUDY DATE/TIME: 05/23/2017 15:22 UNIT: [facility] ROOM: [facility] STUDY DESCRIPTION: CT Abd and Pelv Wo Cont Attending Physician: Brianna Mathews M.D. Ordering Physician: India Rod M.D. Primary Care Physician: Compa Arango M.D. MEDICAL IMAGING REPORT This report is preliminary unless electronic signature is present EXAM CT abdomen and pelvis without contrast HISTORY Right buttock wound concern for fistula. Symptoms for 2 weeks, fever, smoker. COMPARISON CT abdomen and pelvis 02/22/[address] exam was performed with one or more of the following radiation dose reduction techniques: automatic control, adjustment of mA and/or kV according to patient size, and iterative reconstruction. FINDINGS Axial images performed through the abdomen and pelvis without contrast. Multiplanar reconstructed images reviewed at a workstation. There is a left-sided volume loss with left basilar atelectasis or scarring. Liver spleen and gallbladder unremarkable. Pancreas kidneys and adrenal glands unremarkable on this unenhanced study. Stomach, small bowel colon and appendix unremarkable. Retroperitoneum remarkable for aneurysmal dilatation of the suprarenal aorta measuring up to 4.4 cm. It is not significantly changed from prior exams. PELVIS: Bladder is distended. Uterus and adnexa unremarkable. There is extensive cellulitis within the right gluteal and flank region with some areas of focal induration and consolidation and a small amount of soft tissue gas. No communication to the pelvis or intraabdominal structures seen. Area of cellulitis measures approximately 20 x 20 cm. IMPRESSION [facility] A Service of [facility] & [facility] RADIOLOGY TEXT RESULTS PATIENT: ELIANA BOLDEN LOCATION: [facility] 469- : [birth year] UNIT #: [id number] AGE: [address]: Brianna Mathews MD SEX: F ORDER DR: 1. Extensive cellulitis involving the right gluteal soft tissues with small amount of soft tissue gas and focal areas of consolidation could represent a developing abscess but no direct communication to the gluteal musculature or intrapelvic structures seen. 2. Stable suprarenal abdominal aortic aneurysm. Dictated by... Brendan Ackerman M.D. THIS IS AN ELECTRONICALLY VERIFIED REPORT Brendan Ackerman M.D. at 05/24/2017 1:01 PM HIMANSHU/karoline TD: 05/23/2017 23:27 JOB #: [id number] MEDICAL IMAGING REPORT Page 1 of 1 COPY
--- NOTE | ~2017-05-23 | OR ---
Unit #: [id number] #: [id number] Patient: ELIANA BOLDEN [id number] [address] [address] [id number] I MR#: [id number] NAME: ELIANA BOLDEN ROOM: 469 Date of Procedure: 05/24/2017 Admission Date: 05/23/2017 Surgeon: Anthony Hong III, M.D. : 1950 Attending Physician: Brianna Mathews M.D. Primary Care Physician: Compa Arango M.D. OPERATIVE REPORT PREOPERATIVE DIAGNOSIS Right gluteal abscess. POSTOPERATIVE DIAGNOSIS Right gluteal abscess. PROCEDURE PERFORMED Sharp excisional debridement of skin and subcutaneous fat of right gluteal tissue. ANESTHESIA General endotracheal tube anesthesia. ESTIMATED BLOOD LOSS 50 mL. COMPLICATIONS None apparent. SPECIMEN Tissue to pathology. INDICATIONS FOR PROCEDURE This is a 66-year-old lady, who is wheelchair bound. She presented with a small draining sinus in the right gluteal region and some induration extending towards the lateral area with some overlying blistering of the skin. She is here today for incision and drainage. DESCRIPTION OF PROCEDURE After consent was obtained, the patient was brought to the operating room and placed in the supine position. General anesthetic was administered. She was then placed in the left lateral decubitus position, comfortably padded on a beanbag. She had the described physical findings as above. I made an oval shaped incision overlying the area that was blistered, what I found was essentially a large decubitus ulcer that had all the dermis intact overlying it. I excised this entire area, which measured approximately 12 cm in length and approximately 6 cm in width. This had basically from the underlying tissue. I did not see any gross purulence. I achieved good hemostasis with the Bovie cautery and packed the wound with Betadine soaked Kerlix gauze. She tolerated the procedure without any problems and returned to the recovery room in stable condition. Unit #: [id number] #: [id number] Patient: ELIANA BOLDEN Dictated by... Anthony Hong III, M.D. VCL/uriel TD: 05/24/2017 18:12 JOB #: [id number] OPERATIVE REPORT Page 1 of 1 X Anthony Hong III, MD PROCEDURE OPERATIVE NOTE
--- NOTE | ~2017-05-23 | A ---
[facility] Therapy DATE: 06/02/17 Patient: ELIANA BOLDEN Physician: AUDREY Address: [address] [place] [address] Room/Bed: [address] [place] [address], Zip: [place] [address] Admit Date: 05/23/17 Date of : [birth year] Height: 5 7 Weight: 201 91.36 NUTRITIONAL ASSESSMENT: REASON: LOS ASSESSMENT PT IS 66 Y.O. FEMALE ADMITTED FOR ABSCESS PMH: T2DM, PAD S/P (R) BKA, HTN, HLD, COPD, CAD, TIA, HYPOTHYROIDISM, MATT, GOUT, RESPIRATORY FAILURE Anthropometrics: 5'7", WT: 221# (100 KG), BMI: 34.6 -WEIGHTS HAVE RANGED 201-221# SINCE ADMIT Labs: GLU: 207, CA+:8.0, ALB: 2.5, A1c: 8.9 Meds: FUROSEMIDE, NOVOLOG, MIRALAX, LEVEMIR, PEPCID, SYNTHROID, KCL, COLACE, ZOFRAN, FERROUS GLUCONATE I/O & Bowel function: 1200/6, 1 BM NOTED Skin Integrity: (L) BUTTOCK CELLULITIS/ABSCESS S/P I&D EDEMA: (L) LOWER EXTREMITY EDEMA Assessment: CHART REVIEWED AND EVENTS NOTED. PT SEEN FOR LENGTH OF STAY ASSESSMENT (10 DAYS). PT REPORTS GOOD PO INTAKE AND APPETITE, NOTING NO C/O N/V/D. PER CHART, PT CONSUMING ~75-100% OF MEALS PAST 3 DAYS. PT DENIES ANY RECENT WEIGHT LOSS. THIS RD ENCOURAGED ADEQUATE PROTEIN + VITAMINS/MINERALS TO AIDE IN SKIN HEALING, PT AGREED. RD ALSO PROVIDED WRITTEN AND VERBAL CC DIET EDUCATION. PT DEMONSTRATED UNDERSTANDING OF THE TOPIC, REPORTED NO DIET QUESTIONS AT THIS TIME. RD TO REMAIN AVAILABLE. Dx: IMPAIRED GLYCEMIC CONTROL R/T PMH AEB ELEVATED BLOOD SUGARS NOTED, A1c OF 8.9, NEED FOR THERAPEUTIC DIET ORDER. -ALTERED NUTRIENT UTILIZATION R/T PMH AEB NEED FOR THERAPEUTIC DIET ORDER. Intervention: 1. CC DIET 2. WRITTEN & VERBAL DIET EDUCATION Monitoring, Evaluation and Goals: 1. ORAL INTAKE; CONSUME >50% OF MEALS 2. LABS; GLU, A1c 3. UNDERSTANDING OF DIET ORDER MONITOR: -PO INTAKE/APPETITE [facility] DATE: 06/02/17 Patient: ELIANA BOLDEN Physician: AUDREY Address: [address] [facility] Room/Bed: [address] [place] [address], Zip: [place] [address] Admit Date: 05/23/17 Date of : [birth year] Height: 5 7 Weight: 201 91.36 -LABS -EDUCATION NEEDS Recommendations: 1. RECOMMEND TO ADD HEART HEALTHY TO CURRENT DIET ORDER ABOVE 2' PMH 2. ADD MVI W/MINERAL DAILY TO PT'S CURRENT MEDICATION REGIMEN TO PROMOTE SKIN HEALING 3. CONSULT RD IF FURTHER DIET EDUCATION REQUESTED RD WILL F/U PER PROTOCOL PT IS MILDLY COMPROMISED Respectfully, MARCO HEMPHILL MS, RD, LD Food and Nutritional Services [facility] cc: client file
--- NOTE | ~2017-05-23 | US77 ---
[facility] A Service of [facility] RADIOLOGY TEXT RESULTS PATIENT: ELIANA BOLDEN LOCATION: [facility] 469-01 : 52 UNIT #: [id number] AGE: [address]: Brianna Mathews MD SEX: F ORDER DR: [id number] [facility] [address] [place], [place] [address] [id number] I MR#: [id number] Acc #: [id number] NAME: ELIANA BOLDEN. : 1950 SEX: F STUDY DATE/TIME: 05/24/2017 8:53 UNIT: [facility] ROOM: [facility] STUDY DESCRIPTION: US Kidney Bilateral Complete Attending Physician: Brianna Mathews M.D. Ordering Physician: Brianna Mathews M.D. Primary Care Physician: Compa Arango M.D. MEDICAL IMAGING REPORT This report is preliminary unless electronic signature is present EXAM Ultrasound bilateral complete kidneys. HISTORY Acute kidney injury, eGFR 21.7, BUN 26, creatinine 2.6 COMMENT Real-time ultrasonography of the bilateral kidneys performed with imaging through the urinary bladder. There is a CT abdomen and pelvis comparison from 05/23/2017. 2-D goetz-scale imaging obtained with limited color flow Doppler technique. The right kidney measures 12.7 x 3.9 x 5.6 cm dimension. There is no hydronephrosis. There is mild increase in renal echotexture when compared to the adjacent liver diffusely. No shadowing calculus or suspicious mass appreciated on ultrasound. Urinary bladder is unremarkable. Evaluation of the left kidney is limited. The kidney appears to be under-measured on the ultrasound when compared to the earlier CT scan. Ultrasound measurements are 6.7 x 2.9 x 3.[address] scan, it measures about 9.3 cm in length. There is probably some increased echotexture again suggested from chronic medical renal disease. There is no hydronephrosis or gross focal mass lesion. Again, this is a limited ultrasound of the left kidney. IMPRESSION 1. No evidence for hydronephrosis. 2. Suspect mildly increased renal echotexture bilaterally. This suggests underlying chronic medical renal disease. Please correlate with clinical assessment. 3. Unremarkable appearance to the urinary bladder. 4. Particularly suboptimal ultrasound assessment of the left kidney. I believe it is under-measured on the ultrasound and a better measurement is probably acquired on the CT scan from yesterday. [facility] A Service of [facility] RADIOLOGY TEXT RESULTS PATIENT: ELIANA BOLDEN LOCATION: [place] [address] : [birth year] UNIT #: [id number] AGE: [address]: Brianna Mathews MD SEX: F ORDER DR: Dictated by... Rajni Hopper M.D. THIS IS AN ELECTRONICALLY VERIFIED REPORT Rajni Hopper M.D. at 05/25/2017 7:54 AM ARNULFO/sherron TD: 05/24/2017 18:46 JOB #: [id number] MEDICAL IMAGING REPORT Page 1 of 1 COPY
--- NOTE | ~2017-05-23 | CR72 ---
[facility] A Service of [facility] & [facility] RADIOLOGY TEXT RESULTS PATIENT: ELIANA BOLDEN LOCATION: [facility] 469- : [birth year] UNIT #: [id number] AGE: [address]: Jony Klein MD SEX: F ORDER DR: [id number] [facility] [address] [place], [place] [address] [id number] I MR#: [id number] Acc #: [id number] NAME: ELIANA BOLDEN. : 1950 SEX: F STUDY DATE/TIME: 05/28/2017 12:48 UNIT: [facility] ROOM: [facility] STUDY DESCRIPTION: CR Chest Single View Portable Attending Physician: Jony Klein M.D. Ordering Physician: Ninoska Humphries A.P.R.N. Primary Care Physician: Compa Arango M.D. MEDICAL IMAGING REPORT This report is preliminary unless electronic signature is present EXAM Frontal chest 05/28/2017 INDICATIONS 66-year-old female with abscess, pneumonia, short of air, cough, diabetes, congestive heart failure, hypertension. Frontal chest compared with 05/23/2017 FINDINGS Cardiac silhouette is stable. Lung volumes are low. There is bronchovascular crowding. There is atelectasis or faint infiltrate in the left lung base with a probable trace left effusion. Volume loss and elevation of the left hemidiaphragm persists. No pneumothorax. IMPRESSION Low lung volumes with probable atelectasis or less likely faint infiltrate in the lung bases left greater than right. There may be a trace amount of left-sided pleural fluid. No pneumothorax. Dictated by... Ousmane Gomez M.D. THIS IS AN ELECTRONICALLY VERIFIED REPORT Ousmane Gomez M.D. at 05/28/2017 5:12 PM Erik TD: 05/28/2017 15:58 JOB #: [id number] MEDICAL IMAGING REPORT Page 1 of 1 COPY
--- NOTE | ~2017-05-23 | EKG ---
PATIENT: ELIANA BOLDEN UNIT #: [id number] Ventricular Rate: 77 BPM Atrial Rate: 77 BPM P-R Interval: 176 ms QRS Duration: 108 ms Q-T Interval: 424 ms QTC Calculation(Bezet): 479 ms P [place]: 34 degrees Calculated R [place]: -33 degrees Calculated T [place]: 14 degrees Diagnosis Line: Normal sinus rhythm Diagnosis Line: Left axis deviation Diagnosis Line: Abnormal ECG Diagnosis Line: When compared with ECG of 31-DEC-2016 12:39, Diagnosis Line: No significant change was found Diagnosis Line: Confirmed by EVELIO BRIGGS MD ([id number]) on Diagnosis Line: 05/25/2017 8:12:27 PM INTERPRETING MD: [place]
--- NOTE | ~2017-05-23 | CO ---
Unit #: [id number] #: [id number] Patient: ELIANA BOLDEN [id number] [address] [place], [place] [address] [id number] I MR#: [id number] NAME: ELIANA BLODEN ROOM: 469 Age: 66 Sex: F Admission Date: 05/23/2017 : 1950 Attending Physician: Brianna Mathews M.D. Primary Care Physician: Compa Arango M.D. Consultation Date: 05/24/2017 CONSULTATION REPORT REASON FOR CONSULTATION Right gluteal abscess. HISTORY OF PRESENT ILLNESS This is a 66-year-old lady who has multiple medical problems. We were asked to see her for a 2-week history of draining in right-sided gluteal boil. She has some discomfort in that area. She states it has been draining some purulent material, which started off as a small amount and then increased to a large amount. She states that she actually came into the ER for chest pain, and was incidentally evaluated for this as well. PAST MEDICAL HISTORY Significant for: 1. Insulin-dependent diabetes mellitus. 2. Coronary artery disease. 3. History of myocardial infarction. 4. History of diastolic dysfunction of her cardia. 5. History of COPD. 6. Peripheral vascular disease. 7. Hypothyroidism. 8. History of aortic aneurysm. PAST SURGICAL HISTORY She has had a right below-knee amputation, carotid endarterectomy, , stent placement, and AAA repair. SOCIAL HISTORY She is wheelchair bound. She still smokes a few cigarettes per day. She lives alone. FAMILY HISTORY Significant for coronary artery disease. ALLERGIES She has allergies to metoprolol and Levaquin. MEDICATIONS Please see med rec list. It is fairly extensive, but she does also take aspirin, Plavix, and Prednisone. REVIEW OF SYSTEMS Negative for weight loss or jaundice and is otherwise as above. She does Unit #: [id number] #: [id number] Patient: ELIANA BOLDEN complain of some chest pain, and has had some shortness of air especially when lying flat. PHYSICAL EXAMINATION VITAL SIGNS: Temperature is 98.6, heart rate is 84, respiratory rate is 20, blood pressure is 144/51. BMI is 34. GENERAL: She is in no acute distress. HEENT: Pupils are equal and reactive to light and accommodation. Extraocular muscles are intact. NECK: Without masses or bruits. LUNGS: Show good breath sounds with some scattered wheezing. CARDIAC: Shows regular rate and rhythm without murmur. ABDOMEN: Soft, nontender, and nondistended with no organomegaly. GLUTEAL: On the right gluteal area medially, she has a small draining sinus that is draining some light-murky fluid. Lateral to that, there is some induration and some blistering with eschar. This is consistent with an abscess. EXTREMITIES: Shows a right below-knee amputation. NEUROLOGIC: She is alert and oriented. There are no focal deficits. LABORATORY DATA White blood count was 16,000 on admission and is now 12,000. Glucose is 230 this morning. Creatinine is 2.0. Potassium is 2.9. Troponins are elevated at 0.1. CT scan showed extensive cellulitis with a few gas bubbles under the gluteal flap. IMPRESSION This is a 66-year-old lady who has a right gluteal abscess. It is partially drained and is may be improved a little bit with IV antibiotics. She certainly needs to have this area debrided, but it is also been chronically there for two weeks. She has hypokalemia that needs to be corrected and she also has elevation of troponin with multiple risk factors for myocardial infarction and needs to be cleared by Cardiology prior to any surgical intervention. I did describe to her that this would be a fairly extensive debridement and she would be left with an open wound that would require dressing changes. She understands that and wishes to proceed. Dictated by... Anthony Hong III, M.D. VCL/uriel TD: 05/24/2017 06:59 JOB #: [id number] CONSULTATION REPORT Page 1 of 1 X Anthony Hong III, MD CONSULTATION REPORT
--- NOTE | ~2017-05-23 | CO ---
Unit #: [id number] #: [id number] Patient: ELIANA HENRIQUEZ [id number] [address] [address] [id number] I MR#: [id number] NAME: ELIANA HENRIQUEZ ROOM: 469 Age: 66 Sex: F Admission Date: 05/23/2017 : 1950 Attending Physician: Brianna Mathews M.D. Primary Care Physician: Compa Arango M.D. Consultation Date: 05/24/2017 CONSULTATION REPORT REASON FOR CONSULTATION Renal insufficiency. Thank you very much for asking me to see this patient in consultation. HISTORY OF PRESENT ILLNESS Ms. Henriquez is a 66-year-old female, who presented to the hospital yesterday after about 2 weeks of fevers and noted to have some increased apparently swelling on her right buttock region, who apparently has gotten worse and painful, at which time, she presented here and was noted to have a probable cellulitis of the right buttock gluteal fold area and was admitted. The patient was noted upon presentation to have BUN and creatinine of 46 and 2.6. Because of this, I was asked to see the patient. Her potassium was 2.7 at that time. The patient states she has not had any severe diarrhea. She has had some fevers and chills. She has been taking some Advil on and off at home for the last few weeks. She states she has had decreased appetite, but again no nausea, vomiting, or diarrhea. She has had a fever. She denies any chest pain. She has had some cough and occasional shortness of breath. The patient was actually seen in 2008 for acute renal failure and followed up with me one time in the office, it resolved. The patient was noted in 12/2016 to have a creatinine of 0.8. She was admitted again here and started on some mild normal saline at 75 mL an hour, although most of her medicines were restarted. PAST MEDICAL HISTORY Complicated, history of COPD, history of diabetes mellitus, history of hypertension, history of hyperlipidemia, history of atherosclerotic coronary artery disease status post stents, history of peripheral vascular disease status post right BKA, history of carotid endarterectomy, history of hypothyroidism, history of abdominal aortic aneurysm status post repair in the past, history of intracranial aneurysm status post clips, history of gout, history of acute renal failure resolved however noted in 2008, she had a mild faint IgG lambda. On her SPEP, she had a negative HALLIE and negative ANCA, and negative anti-GBM. FAMILY HISTORY Negative for kidney disease. SOCIAL HISTORY Lives alone. Positive smoker still. ALLERGIES Include metoprolol, levofloxacin. Unit #: [id number] #: [id number] Patient: ELIANA HENRIQUEZ MEDICATIONS At home are multiple including aspirin, Lortab, Levophed, Coreg, Lipitor, glipizide, Plavix, amlodipine, calcitriol, Zolpidem, insulin, Neurontin, lisinopril, prednisone, hydralazine, Protonix, and Lasix. REVIEW OF SYSTEMS As mentioned in the HPI. She denies any visual problems or sinus problems. No hemoptysis. No neck pain or neck stiffness. No chest pain, chest heaviness, or palpitations. No severe abdominal pain. She did have the right buttock problems, swelling, drainage. She has had some intermittent lower extremity swelling. She says her swelling has been on her left side since she had her amputation back in end of last year. She denies any recent seizures or strokes. PHYSICAL EXAMINATION GENERAL: She is alert and oriented. VITAL SIGNS: Temperature is 98.6, pulse 79 to 92, blood pressure 100 to 144 over 43 to 67. HEENT: She is normocephalic and atraumatic. Pupils are equal, round, and reactive to light. Extraocular muscles are intact. Hearing appears to be normal. Mouth is clear. No erythema. No exudate. NECK: Supple. No JVD. CARDIAC: She has regular rhythm without a rub. No S3 or S4. LUNGS: Sound fairly clear bilaterally. ABDOMEN: Bowel sounds positive, obese, nontender. Her right buttock, she has a dressing on her wound. EXTREMITIES: She has a right BKA, her left has positive lower extremity swelling. NEURO: Appears to be intact motor and sensory grossly. : Deferred. DIAGNOSTIC STUDIES LABORATORY RESULTS: This morning showed sodium of 130, potassium 2.9, chloride is 94, bicarb is 30, BUN of 45 down from 46, creatinine is down to 2 from 2.6, glucose 230, calcium is 8.8, albumin is 2.3 in 12/2016, creatinine 0.8. Her hemoglobin is 10.7, white count 44196, platelets 231,000. UA shows specific gravity of 1.01. No protein. She had 10 to 25 rbc's, 2 to 5 wbc's. IMAGING STUDIES: Her chest x-ray was negative. Her CT scan of the abdomen and pelvis showed without contrast distended bladder, severe cellulitis large in the gluteal fold on the right and 4.4 cm abdominal aortic aneurysm. ASSESSMENT AND PLAN 1. Acute kidney injury. This is a lady with increased BUN and creatinine, although actually it is improved with a little bit of fluid and antibiotics from last night to today. She does have some increased edema, but again with improvement of her renal function with fluids, I am not sure what her true intravascular volume is. For now, I am going to discontinue her on amlodipine, her blood pressures has been running low as well as discontinue her TAMI inhibitor and I am going to hold her Lasix and keep her on a little normal saline since she has been noted to have a possible surgery later today. She did have a distended bladder on her CT scan. I am going to check a bladder, although renal function. Her renal did not show any obstruction. I am going to go ahead and check her bladder scan postvoid residual and if it is elevated, we will need to Unit #: [id number] #: [id number] Patient: ELIANA HENRIQUEZ place Box catheter. For now, again we will check a urine eosinophils, check repeat urine for protein and creatinine. Repeat a serum protein immunofixation since she had a faint IgG in 2008. Depending on how her renal function does and volume status holding her fluids and restarting her diuretics etc. Again, I am stopping amlodipine thinking that maybe some of her swelling is related to her amlodipine as well as going to check a repeat TSH. She also is on Rocaltrol not sure why. We will check a PTH as well. We will continue to follow. 2. Hypokalemia being replaced per protocol. 3. Diabetes mellitus with increased glucose. 4. Right buttock cellulitis possible surgery today. 5. History of heart disease. 6. Peripheral vascular disease. Dictated by.Vinay Rowe M.D. BARBIE/uriel TD: 05/24/2017 23:25 JOB #: [id number] CONSULTATION REPORT Page 1 of 1 X Sandy Rowe MD CONSULTATION REPORT
--- NOTE | ~2017-05-23 | CR72 ---
[facility] A Service of [facility] & [facility] RADIOLOGY TEXT RESULTS PATIENT: ELIANA BOLDEN LOCATION: [facility] [address] : [birth year] UNIT #: [id number] AGE: [address]: Brianna Mathews MD SEX: F ORDER DR: [id number] [facility] [address] [place], [place] [address] [id number] I MR#: [id number] Acc #: [id number] NAME: ELIANA BOLDEN. : 1950 SEX: F STUDY DATE/TIME: 05/23/2017 13:37 UNIT: [facility] ROOM: [facility] STUDY DESCRIPTION: CR Chest Single View Portable Attending Physician: Brianna Mathews M.D. Ordering Physician: India Rod M.D. Primary Care Physician: Compa Arango M.D. MEDICAL IMAGING REPORT This report is preliminary unless electronic signature is present EXAM Chest x-ray single-view portable HISTORY Short of air, fever, right leg pain, cough today patient has a history of essential hypertension, prior smoking, diabetes and CHF. COMMENT Single frontal portable view of the chest timed 13:37 on 05/23/2017 compared to 12/31/2016. The borderline cardiac silhouette size not changed. No pneumothorax. Mild elevation left hemidiaphragm not changed. Increased parenchymal markings at the left base are chronic. This could be due to residual or recurrent airspace disease or could be due to parenchymal scarring. There is a CT abdomen and pelvis scheduled. Please refer to that study since this area will be covered at the lung bases on that exam. Prominence of the central peribronchovascular soft tissues and right hilum unchanged. Mild central vascular prominence, unchanged. IMPRESSION Stable appearance to the chest. Chronically increased markings at the left base could be due to parenchymal scarring or residual or recurrent airspace disease. Please see the upcoming abdomen and pelvis CT dictation. At this time there is nothing to suggest pleural effusion or pneumothorax and there is no definite congestive failure. Dictated by... Rajni Hopper M.D. THIS IS AN ELECTRONICALLY VERIFIED REPORT Rajni Hopper M.D. at 05/24/2017 8:10 AM SAC/rnr [facility] A Service of [facility] RADIOLOGY TEXT RESULTS PATIENT: ELIANA BOLDEN LOCATION: [facility] [address] : [birth year] UNIT #: [id number] AGE: [address]: Brianna Mathews MD SEX: F ORDER DR: TD: 05/23/2017 21:56 JOB #: [id number] MEDICAL IMAGING REPORT Page 1 of 1 COPY
--- NOTE | ~2017-05-23 | EKG ---
PATIENT: ELIANA BOLDEN UNIT #: [id number] Ventricular Rate: 99 BPM Atrial Rate: 99 BPM P-R Interval: 148 ms QRS Duration: 96 ms Q-T Interval: 382 ms QTC Calculation(Bezet): 490 ms P Flint: 64 degrees Calculated R Flint: 32 degrees Calculated T Flint: 39 degrees Diagnosis Line: Normal sinus rhythm Diagnosis Line: Prolonged QT Diagnosis Line: Abnormal ECG Diagnosis Line: When compared with ECG of 24-MAY-2017 11:21, Diagnosis Line: (unconfirmed) Diagnosis Line: No significant change was found Diagnosis Line: Confirmed by EVELIO BRIGGS MD ([id number]) on Diagnosis Line: 05/25/2017 8:27:37 PM INTERPRETING MD: [place]
--- NOTE | ~2017-05-23 | CR72 ---
[facility] A Service of [facility] & [facility] RADIOLOGY TEXT RESULTS PATIENT: ELIANA BOLDEN LOCATION: [facility]- : [birth year] UNIT #: [id number] AGE: [address]: AYANA KIM V SEX: F ORDER DR: [id number] [facility] [address] [place], [place] [address] [id number] I MR#: [id number] #: [id number] NAME: ELIANA BOLDEN. : 1950 SEX: F STUDY DATE/TIME: 06/01/2017 13:48 UNIT: [facility] ROOM: [facility] STUDY DESCRIPTION: CR Chest Single View Portable Attending Physician: Ayana Kim M.D. Ordering Physician: Physician Non-Staff Primary Care Physician: Compa Arango M.D. MEDICAL IMAGING REPORT This report is preliminary unless electronic signature is present EXAM Portable chest, 06/01/2017 HISTORY Shortness of breath and cough beginning 05/23/2017. COPD exacerbation, congestive heart failure and diabetes. Benign essential hypertension. FINDINGS The exam is somewhat limited by patient rotation. The cardiac and mediastinal structures are stable compared with 05/28/2017. There is poor inspiratory result with atelectasis or infiltrate in the left lower lobe and discoid atelectasis at the right base. Lungs are otherwise clear. No pneumothorax. IMPRESSION 1. Exam limited by patient rotation. 2. Poor inspiratory result with atelectasis or infiltrate left lower lobe. Dictated by... Tim Pozo M.D. THIS IS AN ELECTRONICALLY VERIFIED REPORT Tim Pozo M.D. at 06/03/2017 7:37 AM BELÉN/lucy TD: 06/02/2017 07:31 JOB #: [id number] MEDICAL IMAGING REPORT Page 1 of 1 COPY
--- NOTE | ~2017-05-23 | CO ---
Unit #: [id number] #: [id number] Patient: ELIANA BOLDEN [id number] [address] [place], [place] [address] [id number] I MR#: [id number] NAME: ELIANA BOLDEN ROOM: 469 Age: 66 Sex: F Admission Date: 05/23/2017 : 1950 Attending Physician: Brianna Mathews M.D. Primary Care Physician: Compa Arango M.D. CONSULTATION REPORT REASON FOR CONSULTATION Elevated troponin. HISTORY OF PRESENT ILLNESS This is a pleasant 66-year-old -[place] female who has been followed by Dr. Hale in the past. She has a past medical history of a known coronary artery disease, status post PTCA with stent placement to the proximal LAD and mid RCA in 08/2015, diastolic CHF with last known EF of greater than 55%, hypertension, hyperlipidemia, diabetes mellitus, COPD, O2 dependent, PVD, status post left carotid endarterectomy, hypothyroidism, abdominal aortic aneurysm repair, continued tobacco abuse despite recommendations for cessation. The patient was admitted secondary to stating just not feeling well for the last two weeks, decreased appetite, also complaints of shortness of breath with productive cough, fevers, and chills. She also reports she had a boil on her left buttock that had been draining. CT scan was performed, which showed findings concerning for abscess of the right gluteal soft tissue as well as cellulitis, needing debridement. At present, she is resting comfortably. She denies any complaints. She appears very drowsy today. According to the nursing staff, she has just recently received Percocet. She is able to answer questions appropriately. Her initial EKG in the emergency room showed normal sinus rhythm with left axis deviation, no acute ischemic change was noted. QTc interval 479 milliseconds. Point of care troponin initially was 0.05. Repeat troponin was 0.10. Again, the patient denies any complaints at present of chest pain or shortness of breath. We were asked to see the patient secondary to preop cardiac clearance. It is notable on arrival to the emergency room, the patient was noted to be in acute kidney injury with a creatinine of 2.6. Renal is currently following and her creatinine is trending down. Today's troponin was 2.0. She also was noted to be profoundly hypokalemic, this is currently being replaced. On the monitor, she has normal sinus rhythm. PAST MEDICAL HISTORY 1. Known coronary artery disease, status post PTCA and stent to the proximal LAD and the mid RCA on 08/30/2015. 2. Diastolic CHF. Last echo in 2014 showed LVEF of greater than 55%, impaired relaxation. 3. Hjnl-tx-caqunhpb pulmonic regurgitation. 4. Diastolic CHF. Unit #: [id number] #: [id number] Patient: ELIANA BOLDEN 5. Hypertension. 6. Hyperlipidemia. 7. Diabetes mellitus. 8. COPD, depended on home oxygen 3 L. 9. Peripheral vascular disease, status post left carotid endarterectomy. 10. Hypothyroidism. 11. Abdominal aortic aneurysm repair. 12. Continued tobacco use. 13. History of intracranial aneurysm. 14. Gout. PAST SURGICAL HISTORY 1. Cardiac stent placement x2. 2. Right kfvgv-grt-rjpr amputation. 3. Abdominal aortic aneurysm repair. 4. Left carotid endarterectomy. 5. Intracranial aneurysm clipping. 6. . SOCIAL HISTORY The patient reports she lives at home alone. She ambulates with the assistance of a walker. She does smoke approximately one pack per day for 40 years. Denies any illicit drug use. Denies alcohol. FAMILY HISTORY Positive for coronary artery disease in her mother. ALLERGIES Metoprolol, levofloxacin, and pineapple. HOME MEDICATIONS 1. Aspirin 81 mg p.o. daily. 2. Lortab 10/325 one tab p.o. q.6 hours. 3. Levothyroxine 50 mcg p.o. daily. 4. Carvedilol 6.25 mg p.o. b.i.d. 5. Lipitor 20 mg p.o. daily. 6. Glipizide 10 mg p.o. b.i.d. 7. Ventolin two puffs inhalation q.i.d. p.r.n. 8. Plavix 75 mg p.o. daily. 9. Amlodipine 10 mg p.o. daily. 10. Benadryl 25 mg q.12 hours p.r.n., itching. 11. Ferrous sulfate 325 mg p.o. daily. 12. Calcitriol 0.25 mcg p.o. daily. 13. Zyloprim 100 mg p.o. daily. 14. Humulin R insulin subcu a.c. and at bedtime. 15. Colace 100 mg p.o. b.i.d. 16. Neurontin 400 mg p.o. t.i.d. 17. Humulin N 50 units subcu daily while on prednisone and then discontinue. 18. Lisinopril 20 mg p.o. b.i.d. 19. Symbicort 160/4.5 two puffs inhalation b.i.d. 20. Hydralazine 75 mg p.o. t.i.d. 21. Protonix 40 mg p.o. b.i.d.. 22. Furosemide 40 mg p.o. b.i.d. 23. Clonazepam 2 mg p.o. nightly. Unit #: [id number] #: [id number] Patient: ELIANA BOLDEN REVIEW OF SYSTEMS A 12-point review of systems positive for what was stated above as well as fatigue and intermittent shortness of breath; otherwise, negative except as stated in the HPI. PHYSICAL EXAMINATION GENERAL: This is a pleasant 66-year-old female, who is very drowsy today, apparently just recently received Percocet per the nursing staff. She is, however, able to answer questions appropriately. VITAL SIGNS: Temperature is 98.6, respiratory rate is 18 to 20, pulse is 80s to 90s, blood pressure is 104/43 to 144/51, and BMI is 34. HEENT: Head is atraumatic and normocephalic. Pupils are equal and round. Mucous membranes are dry. NECK: Trachea is midline. No lymphadenopathy. No JVD. Scarring is present in the left anterior neck. Normal carotid upstrokes. CARDIOVASCULAR: S1 and S2. Regular rate and rhythm. No murmurs, gallops or rubs. LUNGS: Clear to auscultation. Diminished in the bases. ABDOMEN: Soft, nontender, and nondistended. Obese pannus. Bowel sounds are present. EXTREMITIES: Left pulse is weak. Trace edema. No clubbing or cyanosis is noted. NEUROLOGIC: She is drowsy. She moves extremities appropriately. Follows commands with ease. SKIN: She has a dressing on the right buttock, drainage noted to be on the dressing site. DIAGNOSTIC STUDIES LABORATORY RESULTS: Sodium 130, potassium 3.9, chloride 94, CO2 of 30, BUN 45, creatinine is 2.0, glucose 230. Hemoglobin 10.5, hematocrit 32.6, WBC 12.3, platelet count 231. Initial point of care troponin 0.05, repeat is 0.10. Blood cultures are currently pending. IMAGING STUDIES: Chest x-ray shows stable appearance of the chest. Chronically increased markings at the left base due to parenchymal scarring or residual or recurrent airspace disease. At this time, there is nothing to suggest pleural effusion or pneumothorax. No definitive congestive heart failure is noted. CT of the abdomen and pelvis shows: 1. Extensive cellulitis involving the right gluteal soft tissue with small amount of soft tissue gas and focal areas of consolidation, it could represent developing abscess. No direct communications to the gluteal musculature or intrapelvic structures were seen. 2. Stable suprarenal abdominal aortic aneurysm. Cardiovascular EKG shows normal sinus rhythm, rate of 77 beats per minute. Left axis deviation is present. QTc interval 479 milliseconds. No acute ischemic changes noted. IMPRESSION 1. Right gluteal abscess with cellulitis. 2. Acute kidney injury. 3. Known coronary artery disease, status post percutaneous transluminal coronary angioplasty with stent placement of proximal LAD and the mid RCA in 08/30/2015. 4. History of diastolic congestive heart failure. Last EF was greater than 55% per 2D echocardiogram in 2014 and also showed impaired relaxation Unit #: [id number] #: [id number] Patient: ELIANA BOLDEN and bsdg-[id number]-smpbtbgc pulmonic regurgitation. 5. Hypertension. 6. Diabetes mellitus. 7. Chronic obstructive pulmonary disease, O2 dependent. 8. History of peripheral vascular disease, status post left carotid endarterectomy as well as right epvsw-esj-hnrp amputation. 9. History of abdominal aortic aneurysm repair. 10. Continued tobacco abuse. IMPRESSION 1. We have been asked to see the patient for preoperative surgical clearance for debridement. Her troponin is slightly elevated, which is indeterminate at 0.10. The patient denies any complaints of active chest pain. She does have intermittent periods of shortness of breath. Her EKG is benign, shows no evidence of acute ischemia. At this time, she does not appear to be in any congestive heart failure. She appears euvolemic. The patient was also found to be profoundly hypokalemic. She is currently receiving potassium replacement. Renal is also following her secondary to her acute kidney injury. They have discontinued her lisinopril and her hydralazine. 2. We will repeat stat EKG per Dr. Law's request as well as a repeat troponin. If the troponin is trending down, she can go ahead and undergo surgery today at moderate, but acceptable risk. The patient was also encouraged to quit smoking. Dictated by... Tanner Lang/uriel TD: 05/25/2017 02:21 JOB #: [id number] CONSULTATION REPORT Page 1 of 1 X Katherine Clancy APRN X CONSULTATION REPORT
--- NOTE | ~2017-05-23 | DS ---
Unit #: [id number] #: [id number] Patient: ELIANA BOLDEN [id number] [address] [address] [id number] MR#: [id number] NAME: ELIANA BOLDEN ROOM: 469 Age: 66 Sex: F Admission Date: 05/23/2017 : 1950 Discharge Date: Attending Physician: Jony Klein M.D. Primary Care Physician: Compa Arango M.D. DISCHARGE SUMMARY DISCHARGE DATE Pending at the time of this dictation. ADMISSION DIAGNOSES 1. Right buttock cellulitis/abscess. 2. Leukocytosis. 3. Hypokalemia. 4. Acute kidney injury. 5. Chronic obstructive pulmonary disease with continued tobacco abuse. 6. Chronic respiratory failure on 3 liters of oxygen per nasal cannula. 7. Diabetes with hemoglobin A1c of 8.6 on 12/27/2016. 8. Hypertension. 9. Hyperlipidemia. 10. Coronary artery disease, status post stent placement. 11. Peripheral arterial disease, status post carotid endarterectomy and right yhlwt-bqk-vvno amputation. 12. Hypothyroidism. 13. Diastolic dysfunction with ejection fraction greater than 55% on echocardiogram 05/28/2013. 14. Abdominal aortic aneurysm, status post repair, complicated by bilateral lower extremity paresis. 15. Gout. 16. Intracranial aneurysm, status post clipping. CONSULTANTS Anthony Hong M.D., [facility]. Amber Law M.D., cardiology. Constantino Rowe M.D., nephrology. Yuniel Marrero M.D., endocrinology. PROCEDURES Sharp excision of debridement of skin and subcutaneous fat of right gluteal tissue for right gluteal abscess. DIAGNOSTIC DATA LABORATORY: White blood cell count 12.3, hemoglobin 8.9, hematocrit 27.6, platelets 297,000. Sodium 141, potassium 4.5, chloride 100, CO2 35, glucose 214, BUN 13, creatinine 0.7, calcium 8.5, phosphorus 3.8, (1)____ 1.9. PTH intact 116, calcium 7.6. Urine culture final no growth at 48 hours. Hemoglobin A1c 8.9. TSH 2.89. Blood cultures preliminary times two no growth after 24 hours. Gram stains sputum final, moderate polys, moderate gram positive cocci in clusters and pairs and few gram negative rods. Sputum culture pending at this time. Unit #: [id number] #: [id number] Patient: ELIANA BOLDEN IMAGING: Frontal chest x-ray 05/28/2017, with impression of low lung volumes with probable atelectasis or less likely faint infiltrate in the lung bases, left greater than right. There may be a trace amount of left-sided pleural effusion. No pneumothorax. Left lower extremity duple venous Doppler report pending. Per voice clip, left popliteal DVT. Renal ultrasound with impression of no evidence for hydronephrosis. Suspect mildly increased renal echotexture bilaterally. Unremarkable appearance of urinary bladder. Suboptimal ultrasound of the left kidney. Suspicion for under measured on ultrasound and better measurement acquired on the CT scan from 05/23/2017. HOSPITAL COURSE The patient is a 66-year-old female with multiple comorbidities, who presented to [facility] on the date of admission with complaint of fever and boils. Her primarily complaint was a boil which developed on the right buttock which had increased in size and become increasingly painful, associated with fever and chills as well as increasing shortness of breath and productive cough. CT of the abdomen and pelvis revealed findings concerning for cellulitis with possible abscess of the right gluteal soft tissue. Blood cultures were collected and she was treated with IV vancomycin in the emergency department. She was admitted to the hospital for further evaluation and management of her condition. Please refer to history and physical report for complete details. [facility] was consulted for further evaluation and management of the patient's right buttock cellulitis and abscess. The patient taken to the operating room for debridement of the skin and subcutaneous fat of the right gluteal tissue for abscess. The patient was noted to have some postoperative localized bleeding. She was again evaluated by [facility] and was treated with Adaptic and has had no further active bleeding. Final wound culture returned positive for normal skin dylon. I have spoken with the microbiology lab livestock sales representative personally, who confirmed that this means that there were no pathogenic bacteria present. The patient continued to receive local wound care as ordered by [facility]. The patient's IV vancomycin and Zosyn were discontinued. The patient continues to complain of discomfort with dressing changes. IV morphine has been given approximately 30-40 minutes prior to dressing changes per report of the RN with some relief at that time. The patient was noted to have a mildly elevated troponin and cardiology was consulted, given her history of coronary artery disease and cardiovascular history. The patient also has a history of hypertension, which was noted to be uncontrolled. The patient's blood pressure medications have been adjusted in consultation with Dr. Rowe of nephrology, given the patient's acute kidney injury. The patient's kidney function has improved. Dr. Rowe continues to follow the patient at this time and is working in consultation with cardiology to reintroduce antihypertensive medications. Type 2 diabetes mellitus uncontrolled. The patient has a long history of insulin dependent diabetes mellitus. The patient's Accu-Cheks were running over [address] Marrero was consulted for further diabetes evaluation and management. The patient has been placed on Unit #: [id number] #: [id number] Patient: ELIANA BOLDEN Levemir as well as sliding scale insulin protocol and mealtime insulin. The patient's Accu-Cheks are much improved and are in the 100 to low 200 range today. It was recommended that the patient follow up with Dr. Marrero after discharge as blood sugar control will be essential to wound healing and to prevent worsening of current comorbidities. The patient has a history of chronic obstructive pulmonary disease and chronic hypoxic respiratory failure and is maintained on 3 liters oxygen per nasal cannula continuously. The patient was noted to have a productive cough yesterday and sputum was noted to be slightly pink tinged with goetz sputum. Sputum culture was collected, with results as dictated above. Final sputum culture report pending at this time. Given the patient's history of chronic obstructive pulmonary disease, continued tobacco abuse and chronic hypoxic respiratory failure, the patient has been placed on doxycycline b.i.d. pending final sputum culture and sensitivity results. She is in no acute distress at this time. The patient has a history of left lower extremity edema and right lower extremity wllwj-srr-mofm amputation. The patient's left lower extremity appeared to develop worsening edema and a left lower extremity duplex venous Doppler revealed DVT in the left lower extremity. The patient was started on therapeutic Lovenox at 1 mg/kg subcutaneous b.i.d. The patient has also been on a low-dose aspirin. Given her history of stent placement, cardiology has been reconsulted in order to manage Plavix, aspirin and anticoagulant for DVT. The patient has been evaluated by physical therapy and occupational therapy, with recommendation by physical therapy that the patient consider rehab services. The patient believes that rehab would be good for her and career development manager is working with rehab facilities at this time and we are awaiting review by facilities and acceptance at this time. This patient is established with [employer] and her family members are paid through [employer] to assist in the care of their mother at home. However, the patient states she feels she needs more services than are available to her through [facility] at this time. The patient is awake, alert and oriented times three, in no acute distress at the time of this dictation. The remainder of the patient's discharge summary will be dictated by my colleague on the date of discharge. Dictated by... Tanner Doshi/gz TD: 05/29/2017 15:39 JOB #: [id number] Unit #: [id number] #: [id number] Patient: KIMIELIANA Leticia DISCHARGE SUMMARY Page 1 of 1 X Ninoska Humphries APRN DISCHARGE SUMMARY
--- NOTE | ~2017-05-23 | HP ---
Unit #: [id number] #: [id number] Patient: ELIANA BOLDEN [id number] [address] [place], [place] [address] [id number] MR#: [id number] NAME: ELIANA BOLDEN. ROOM: Age: 66 Sex: F Admission Date: 05/23/2017 : 1950 Attending Physician: India Rod M.D. Primary Care Physician: Compa Arango M.D. HISTORY AND PHYSICAL CHIEF COMPLAINT Fever, boils. HISTORY OF PRESENT ILLNESS The patient is a 66-year-old female with past medical history of COPD, chronic respiratory failure, diabetes, hypertension, hyperlipidemia, coronary artery disease, peripheral arterial disease, hypothyroidism, diastolic dysfunction, abdominal aortic aneurysm, intracranial aneurysm, gout who presented to the emergency department for evaluation of the above. The patient states that she has not been feeling well for the past two weeks. She states that she developed a boil on her buttock that has increased in size and became increasingly painful. It is actively draining. She states that she has had fever and chills. She also reports increasing shortness of breath and productive cough. She has had decreased appetite but no vomiting or diarrhea. In the emergency department initial pulse and blood pressure were 80 and 100/[address] of the abdomen and pelvis shows findings concerning for a cellulitis with possible abscess involving the right gluteal soft tissue. She was given vancomycin in the emergency department, as well as morphine. Also of note, the patient's potassium is 2.7. She was given 40 mEq of potassium in the emergency department. She is being admitted to [facility] for evaluation and further treatment. PAST MEDICAL HISTORY 1. Admission to [facility] 12/26/2016 through 12/30/2016 for sepsis secondary to pneumonia. 2. COPD. The patient has seen Dr. Castellano in the past. 3. Chronic respiratory failure on three L of oxygen per nasal cannula. 4. Diabetes with hemoglobin A1c of 8.6 on 12/27/2016. 5. Hypertension. 6. Hyperlipidemia. 7. Coronary artery disease, status post cardiac stent placement. 8. Peripheral arterial disease, status post right below the knee amputation. 9. Hypothyroidism. 10. Diastolic dysfunction. The patient had an echocardiogram 03/28/2015 that showed an ejection fraction greater than 55% with moderate concentric left ventricular hypertrophy. Doppler flow pattern suggestive of impaired left ventricular relaxation. 11. Abdominal aortic aneurysm, status post surgery complicated by lower extremity paralysis. Unit #: [id number] #: [id number] Patient: ELIANA BOLDEN 12. Gout. 13. Intracranial aneurysm, status post clipping. PAST SURGICAL HISTORY 1. Cardiac stent placement. 2. Right below the knee amputation. 3. Abdominal aortic aneurysm repair. 4. Intracranial aneurysm clip. 5. Carotid endarterectomy. 6. . SOCIAL HISTORY The patient lives alone. She is in a wheelchair. She continues to smoke a few cigarettes daily. Her code status is a full code. FAMILY HISTORY Notable for her mother having a myocardial infarction. ALLERGIES Metoprolol, levofloxacin, pineapple. HOME MEDICATIONS Aspirin, Lortab, levothyroxine, Coreg, Lipitor, glipizide, Ventolin, Plavix, amlodipine, Feosol, calcitriol, Zyloprim, Humulin R, Colace, Neurontin, Humulin N, lisinopril, Symbicort, prednisone, hydralazine, Protonix, Vantin. Home medications will need to be reviewed and verified. REVIEW OF SYSTEMS A complete review of systems was negative except as indicated in the HPI. PHYSICAL EXAMINATION VITAL SIGNS: Temperature is 97.9, pulse 80, respirations 14, blood pressure 100/48, oxygen saturation 99% on 3 L. GENERAL: The patient is an -[place] female who is awake and alert in no acute distress. HEENT: Head is atraumatic. Mucous membranes are moist. NECK: Supple. Trachea is midline. CARDIOVASCULAR: Regular rate and rhythm. LUNGS: Clear to auscultation bilaterally with no increased work of breathing. ABDOMEN: Soft, nontender with bowel sounds present in all four quadrants. EXTREMITIES: The right lower extremity has been previously amputated below the knee. There is no pedal edema involving the left lower extremity. NEUROLOGIC: The patient is awake and alert. She is oriented x3. She follow commands. PSYCH: Mood and affect are normal. The patient is cooperative. SKIN: The right buttock demonstrates a focal area of skin breakdown with copious amount of purulent, foul smelling drainage. It is surrounded by somewhat indurated skin. She is tender to palpation in this area. DIAGNOSTIC STUDIES CARDIOLOGY STUDIES: EKG shows normal sinus rhythm at a rate of 77 BPM. IMAGING STUDIES: Chest x-ray is stable. CT of the abdomen and pelvis shows stranding in the right gluteal soft tissue with possible early abscess formation. Unit #: [id number] #: [id number] Patient: ELIANA BOLDEN LABORATORY STUDIES: Lactic acid is 1.9. Complete blood clot notable for white blood cell count of 16.3, hemoglobin and hematocrit of 11.3 and 35.3 respectively. Comprehensive metabolic panel notable for a sodium of 130, potassium 2.7, chloride 90, glucose 140, BUN and creatinine 46 and 2.6 respectively, calcium 8.3, albumin 2.5, lipase less than 10, magnesium is 1.6. Troponin less than 0.05, INR is 1.1. ASSESSMENT The patient is a 66-year-old female with: 1. Right buttock cellulitis/abscess. The patient received vancomycin in the emergency department. 2. Leukocytosis. The patient white blood cell count is 16.3. The patient does not have any other SIRS criteria. Lactic acid was 1.9. 3. Hypokalemia. The patient received 40 mEq of potassium in the emergency department. 4. Acute kidney injury. The patient's creatinine was 0.8 on 01/01/2017. It is 2.6 today. The patient does appear to be somewhat volume depleted. 5. COPD with continued tobacco abuse. 6. Chronic respiratory failure on three L of oxygen per nasal cannula. 7. Diabetes with hemoglobin A1c of 8.6 on 12/27/2016. 8. Hypertension. Blood pressure has been running around 100 systolic in the emergency department. 9. Hyperlipidemia. 10. Coronary artery disease, status post stent placement. 11. Peripheral arterial disease, status post carotid endarterectomy and right below the knee amputation. 12. Hypothyroidism. 13. Diastolic dysfunction with ejection fraction of greater than 55% noted on echocardiogram from 03/28/2015. 14. Abdominal aortic aneurysm, status post repair, complicated by bilateral lower extremity paralysis. 15. Gout. 16. Intracranial aneurysm, status post clipping. PLANS 1. Admit to an intermediate level. 2. Healthy heart consistent carb diet, if passes bedside swallow. 3. NPO after midnight for possible surgical intervention. 4. Normal saline at 75 mL an hour. 5. Blood cultures x2. 6. Wound culture and sensitivity. 7. Vancomycin IV and Zosyn IV for right buttock abscess/cellulitis pending further workup. 8. Consult [facility] regarding buttock abscess. 9. P.r.n. Morphine. 10. P.r.n. Zofran. 11. Replace magnesium. 12. Urine sodium, creatinine, and eosinophils. 13. Renal ultrasound. 14. Strict I's and O's. 15. Urinalysis with culture and sensitivity. 16. CPK. 17. Hold nephrotoxic medications. 18. Consult Dr. Rowe regarding acute kidney injury. 19. Supplemental oxygen. 20. P.r.n. DuoNeb. Unit #: [id number] #: [id number] Patient: ELIANA BOLDEN 21. Low dose sliding scale insulin with Accu-Cheks. 22. Serial cardiac enzymes. 23. Repeat labs in the morning including magnesium. 24. Additional workup and consultants based on above. Dictated by Viraj Matias/isabela TD: 05/23/2017 18:16 JOB #: [id number] HISTORY AND PHYSICAL Page 1 of 1 X Brianna Mathews MD X HISTORY AND PHYSICAL
--- NOTE | ~2017-05-23 | EKG ---
PATIENT: ELIANA BOLDEN UNIT #: [id number] Ventricular Rate: 86 BPM Atrial Rate: 86 BPM P-R Interval: 166 ms QRS Duration: 96 ms Q-T Interval: 402 ms QTC Calculation(Bezet): 481 ms P Wildomar: 30 degrees Calculated R Wild[place]: -16 degrees Calculated T Wild[place]: 7 degrees Diagnosis Line: Normal sinus rhythm Diagnosis Line: Normal ECG Diagnosis Line: When compared with ECG of 23-MAY-2017 13:45, Diagnosis Line: (unconfirmed) Diagnosis Line: No significant change was found Diagnosis Line: Confirmed by EVELIO BRIGGS MD ([id number]) on Diagnosis Line: 05/25/2017 8:23:35 PM INTERPRETING MD: [place]
--- NOTE | ~2017-05-23 | CO ---
Unit #: [id number] #: [id number] Patient: ELIANA BOLDEN [id number] [address] [address] [id number] I MR#: [id number] NAME: ELIANA BOLDEN. ROOM: 469 Age: 66 Sex: F Admission Date: 05/23/2017 : 1950 Attending Physician: Jony Klein M.D. Primary Care Physician: Compa Arango M.D. Consultation Date: 05/25/2017 CONSULTATION REPORT REASON FOR CONSULTATION Management of the diabetes mellitus. HISTORY OF PRESENT ILLNESS This is a 66-year-old female with history of multiple medical problems including type 2 diabetes mellitus, insulin dependent, who has been admitted with the right gluteal abscess. She underwent I and D. Her blood sugar has been elevated. I have been asked to see the patient for further management. PAST MEDICAL HISTORY Remarkable for; 1. Type 2 diabetes mellitus, uncontrolled. 2. COPD. 3. Chronic respiratory failure. 4. Coronary artery disease, status post cardiac stent placement. 5. Peripheral artery disease, status post right below-knee amputation. 6. Hypothyroidism. 7. Diastolic dysfunction. 8. Gout. 9. Intracranial aneurysm, status post clipping. PAST SURGICAL HISTORY Cardiac stent placement, right below-knee amputations, abdominal aortic aneurysm repair, intracranial aneurysm clipping, carotid endarterectomy. SOCIAL HISTORY Lives alone. She is wheelchair bound. Continues to smoke. No alcohol. No drugs. FAMILY HISTORY Remarkable for coronary artery disease. ALLERGIES To metoprolol, Levaquin, and pineapple. CURRENT MEDICATIONS List is reviewed. Please see MAR. The patient is only on insulin sliding scale low dose. She is on IV fluids. Synthroid 50 mcg daily, Percocet, Lipitor, Colace, Coreg, Zosyn, Proventil, Combivent, Zofran, morphine, Rocaltrol, hydralazine. REVIEW OF SYSTEMS Unit #: [id number] #: [id number] Patient: ELIANA BOLDEN A 12-point review of system is completed and is unremarkable for any chest pain, palpitations, shortness of air, cough, sputum, fever, chills. PHYSICAL EXAMINATION GENERAL: She is comfortable. No acute respiratory distress. VITAL SIGNS: Temperature 99.1, pulse is 100, respirations 17, blood pressure is 120/52. HEENT: EOMI. Pupils equally reactive to light. NECK: Supple. No thyromegaly noted. CHEST: Good air entry. CVS: Regular rhythm. S1, S2. No murmurs. ABDOMEN: Soft and nontender. Bowel sounds positive. EXTREMITIES: Right below-knee amputations. DIAGNOSTIC STUDIES LABORATORY RESULTS: Creatinine is 1.1. A1c is 8.6 in 12/2016. ASSESSMENT 1. Type 2 diabetes mellitus, uncontrolled. Blood sugar have been running above 300 at this point. 2. Right gluteal abscess, status post incision and drainage. 3. Peripheral vascular disease, status post right below-knee amputation. 4. Coronary artery disease, status post stent placement. 5. Chronic obstructive pulmonary disease with chronic respiratory failure. PLAN We will start the patient on Levemir 30 units at bedtime. Start NovoLog 6 units each meal. Cover with supplemental insulin. Limit carbohydrates to 45 to 60 g carbs with meals. Accu-Cheks a.c. and h.s. Continue all other medications as per MAR. Continue IV antibiotics. Thanks again for consultation. Dictated by... Viraj Contreras/uriel TD: 05/26/2017 18:15 JOB #: [id number] CONSULTATION REPORT Page 1 of 1 X Yuniel Marrero MD CONSULTATION REPORT
[~2017-05-23 12:52] MED LIST changes: +ALLERGY RELIEF25 MG PO; +AMLODIPINE BESYL5 MG PO; +CALCITRIOL0.25 MC1 PO; +COMBIVENT U/D3 M2 INH; +DOCUSATE SODIU100 MG PO; +FEOSOL PO; +HUMULIN N100 U/ML SUBQ; +HUMULIN R500 U/ML; +LISINOPRIL20 MG PO; +NEURONTIN100 MG PO; +PREDNISONE10 MG PO; +PROTONIX PO; +VANTIN200 MG PO; +ZYLOPRIM100 MG PO
[2017-05-23 14:05] LABS: BASOPHIL# 0.1 X10e3 (0-0.3); BASOPHIL% 0.4 % (0-2.5); EOSINOPHIL# 0.2 X10e3 (0-0.7); EOSINOPHIL% 1.3 % (0.0-7.0); HEMATOCRIT 35.3 % (35.0-45.0); HEMOGLOBIN 11.3 gm/dL (12.0-16.0); LYMPHOCYTE# 1.5 X10e3 (1.0-3.5); LYMPHOCYTE% 9.5 % (17.0-45.0); MEAN CELL VOLUME 86.3 FL (83-96); MEAN CORPUSCULAR HEMOGLOBIN 27.5 PG (28-34); MEAN CORPUSCULAR HGB CONC 31.9 g/dL (30-36); MEAN PLATELET VOLUME 8.9 FL (6.5-11.5); MONOCYTE# 1.4 X10e3 (0-1.0); MONOCYTE% 8.5 % (3.0-12.0); NEUTROPHIL# 13.1 X10e3 (1.5-7.1); NEUTROPHIL% 80.3 % (40-75); PLATELET COUNT 219 X10e3 (140-420); RED BLOOD COUNT 4.09 X10e (3.90-5.30); RED CELL DISTRIBUTION WIDTH 15.1 % (11.0-15.5); WHITE BLOOD COUNT 16.3 X10e3 (4.0-10.5)
[2017-05-23 14:18] LABS: DIFF IND YES
[2017-05-23 14:23] LABS: PLATELET ESTIMATE NORMAL (NORMAL); RBC NORMAL YES
[2017-05-23 14:33] LABS: ALBUMIN SERUM 2.5 g/dL (3.5-5.0); ALKALINE PHOSPHATASE 89 U/L (32-92); ALT (SGPT) 12 U/L (10-40); AST (SGOT) 22 U/L (10-42); BILIRUBIN, DIRECT 0.1 mg/dL (0.0-0.2); BILIRUBIN,INDIRECT 0.3 mg/dL (0.0-0.9); BILIRUBIN,TOTAL 0.4 mg/dL (0.2-2.0); BLOOD UREA NITROGEN 46 mg/dL (9-23); BUN/CREATININE RATIO 17.69; CALCIUM SERUM 8.3 mg/dL (8.4-10.2); CARBON DIOXIDE 30 mmol/L (22-31); CHLORIDE 90 mmol/L (100-111); CREATININE SERUM 2.6 mg/dL (0.6-1.4); GLOM FILT RATE Estimated 21.7 mL/min (>60); GLUCOSE FASTING 140 mg/dL (70-110); MAGNESIUM 1.6 mg/dL (1.6-3.0); PROTEIN TOTAL SERUM 6.4 g/dL (6.0-8.3); SODIUM 130 mmol/L (135-145)
[2017-05-23 14:44] LABS: LIPASE <10 U/L (22-51); POTASSIUM 2.7 mmol/L (3.5-5.1)
[2017-05-23 14:54] LABS: POC - CKMB 1.5 ng/mL (0.0-7.9); POC - TROPONIN <0.05 ng/mL (<=0.05)
[2017-05-23 16:21] LABS: INR 1.1; PARTIAL THROMBOPLASTIN TIME 26.5 SECONDS (23.5-31.3); PROTHROMBIN TIME (PATIENT) 11.6 SECONDS (10.0-11.7)
[2017-05-23 17:29] LABS: URINE SOURCE CLEAN CATCH
[2017-05-23 17:33] LABS: URINE APPEARANCE CLEAR; URINE BILIRUBIN NEG (NEG); URINE BLOOD 1+ (NEG); URINE COLOR YELLOW; URINE GLUCOSE NEG (NEG); URINE KETONE NEG (NEG); URINE LEUKOCYTE ESTERASE TRACE (NEG); URINE NITRATE NEG (NEG); URINE PH 5.5 (5-8); URINE PROTEIN NEG (NEG); URINE SPECIFIC GRAVITY 1.011 (1.003-1.035); URINE UROBILINOGEN 0.2 MG/DL (NEG)
[2017-05-23 17:34] LABS: URINE BACTERIA AUWI NEG (NEGATIVE); URINE SQUAMOUS EPITHELIAL CELL OCC /[HPF]
[2017-05-23 17:36] LABS: CULTURE INDICATED? NO
[2017-05-23] MEDS ORDERED: FERRO-TIME325 MG PO (20:06)
[2017-05-23] MEDS ORDERED: FUROSEMIDE40 MG PO (20:07)
[2017-05-23] MEDS ORDERED: CLONAZEPAM2 MG PO (20:07)
[2017-05-23 23:23] LABS: %MB 7.3 % (0.0-4.0); MB 6.4 ng/ml
[2017-05-24 01:49] LABS: %MB 21.1 % (0.0-4.0); MB 20.3 ng/ml
[2017-05-24 03:21] LABS: BASOPHIL# 0.1 X10e3 (0-0.3); BASOPHIL% 0.8 % (0-2.5); EOSINOPHIL# 0.1 X10e3 (0-0.7); EOSINOPHIL% 0.8 % (0.0-7.0); HEMATOCRIT 32.6 % (35.0-45.0); HEMOGLOBIN 10.5 gm/dL (12.0-16.0); LYMPHOCYTE# 1.7 X10e3 (1.0-3.5); LYMPHOCYTE% 14.2 % (17.0-45.0); MEAN CORPUSCULAR HEMOGLOBIN 27.6 PG (28-34); MEAN CORPUSCULAR HGB CONC 32.1 g/dL (30-36); MEAN PLATELET VOLUME 8.7 FL (6.5-11.5); MONOCYTE# 0.8 X10e3 (0-1.0); MONOCYTE% 6.5 % (3.0-12.0); NEUTROPHIL# 9.5 X10e3 (1.5-7.1); NEUTROPHIL% 77.7 % (40-75); PLATELET COUNT 231 X10e3 (140-420); RED BLOOD COUNT 3.79 X10e (3.90-5.30); RED CELL DISTRIBUTION WIDTH 15.2 % (11.0-15.5); WHITE BLOOD COUNT 12.3 X10e3 (4.0-10.5)
[2017-05-24 03:23] LABS: DIFF IND NO
[2017-05-24 03:42] LABS: ALBUMIN SERUM 2.3 g/dL (3.5-5.0); BILIRUBIN,TOTAL 0.3 mg/dL (0.2-2.0); BUN/CREATININE RATIO 22.5; CALCIUM SERUM 7.9 mg/dL (8.4-10.2); GLOM FILT RATE Estimated 29.8 mL/min (>60); MAGNESIUM 1.9 mg/dL (1.6-3.0)
[2017-05-24 03:49] LABS: POTASSIUM 2.9 mmol/L (3.5-5.1)
[2017-05-24 12:04] LABS: BUN/CREATININE RATIO 26.25; CALCIUM SERUM 8.2 mg/dL (8.4-10.2); CREATININE SERUM 1.6 mg/dL (0.6-1.4); GLOM FILT RATE Estimated 39.1 mL/min (>60); POTASSIUM 3.6 mmol/L (3.5-5.1)
[2017-05-24 22:31] LABS: URINE APPEARANCE CLEAR; URINE BILIRUBIN NEG (NEG); URINE BLOOD NEG (NEG); URINE COLOR YELLOW; URINE GLUCOSE NORM (NEG); URINE KETONE NEG (NEG); URINE LEUKOCYTE ESTERASE NEG (NEG); URINE NITRATE NEG (NEG); URINE PROTEIN NEG (NEG); URINE SPECIFIC GRAVITY 1.015 (1.003-1.035); URINE UROBILINOGEN NORM (NEG)
[2017-05-24 22:37] LABS: CREATININE,RANDOM URINE 62 mg/dL; SODIUM URINE RANDOM 23 mmol/L; TOTAL PROTEIN,RANDOM URINE 23 mg/dl (<10)
[2017-05-25 04:04] LABS: BASOPHIL# 0.1 X10e3 (0-0.3); BASOPHIL% 1.1 % (0-2.5); EOSINOPHIL# 0.1 X10e3 (0-0.7); EOSINOPHIL% 1.7 % (0.0-7.0); HEMATOCRIT 25.2 % (35.0-45.0); LYMPHOCYTE# 1.3 X10e3 (1.0-3.5); LYMPHOCYTE% 15.9 % (17.0-45.0); MEAN CELL VOLUME 87.5 FL (83-96); MEAN CORPUSCULAR HEMOGLOBIN 27.8 PG (28-34); MEAN CORPUSCULAR HGB CONC 31.7 g/dL (30-36); MEAN PLATELET VOLUME 8.6 FL (6.5-11.5); MONOCYTE# 0.9 X10e3 (0-1.0); MONOCYTE% 11.1 % (3.0-12.0); NEUTROPHIL# 5.8 X10e3 (1.5-7.1); NEUTROPHIL% 70.2 % (40-75); PLATELET COUNT 186 X10e3 (140-420); RED BLOOD COUNT 2.88 X10e (3.90-5.30); RED CELL DISTRIBUTION WIDTH 15.4 % (11.0-15.5); WHITE BLOOD COUNT 8.3 X10e3 (4.0-10.5)
[2017-05-25 04:11] LABS: CALCIUM SERUM 7.5 mg/dL (8.4-10.2); CREATININE SERUM 1.1 mg/dL (0.6-1.4); GLOM FILT RATE Estimated 61.5 mL/min (>60); MAGNESIUM 1.8 mg/dL (1.6-3.0); PHOSPHOROUS 2.6 mg/dL (2.5-4.6); POTASSIUM 4.2 mmol/L (3.5-5.1)
[2017-05-25 04:17] LABS: DIFF IND NO
[2017-05-26 04:41] LABS: BASOPHIL# 0.1 X10e3 (0-0.3); BASOPHIL% 0.6 % (0-2.5); EOSINOPHIL# 0.2 X10e3 (0-0.7); EOSINOPHIL% 1.8 % (0.0-7.0); HEMATOCRIT 20.7 % (35.0-45.0); LYMPHOCYTE# 2.5 X10e3 (1.0-3.5); LYMPHOCYTE% 20.1 % (17.0-45.0); MEAN CELL VOLUME 87.2 FL (83-96); MEAN CORPUSCULAR HEMOGLOBIN 27.2 PG (28-34); MEAN CORPUSCULAR HGB CONC 31.2 g/dL (30-36); MEAN PLATELET VOLUME 8.4 FL (6.5-11.5); MONOCYTE# 1.1 X10e3 (0-1.0); MONOCYTE% 8.7 % (3.0-12.0); NEUTROPHIL# 8.6 X10e3 (1.5-7.1); NEUTROPHIL% 68.8 % (40-75); PLATELET COUNT 197 X10e3 (140-420); RED BLOOD COUNT 2.38 X10e (3.90-5.30); RED CELL DISTRIBUTION WIDTH 15.3 % (11.0-15.5)
[2017-05-26 04:42] LABS: WHITE BLOOD COUNT 12.5 X10e3 (4.0-10.5)
[2017-05-26 04:46] LABS: DIFF IND YES; HEMOGLOBIN 6.5 gm/dL (12.0-16.0)
[2017-05-26 04:52] LABS: BUN/CREATININE RATIO 24.28; CALCIUM SERUM 7.6 mg/dL (8.4-10.2); CREATININE SERUM 1.4 mg/dL (0.6-1.4); GLOM FILT RATE Estimated 45.9 mL/min (>60); MAGNESIUM 2.4 mg/dL (1.6-3.0); PHOSPHOROUS 3.2 mg/dL (2.5-4.6); POTASSIUM 4.1 mmol/L (3.5-5.1)
[2017-05-26 05:08] LABS: HYPOCHROMIA MOD; MICROCYTOSIS SL; PLATELET ESTIMATE NORMAL (NORMAL)
[2017-05-26 14:30] LABS: BASOPHIL% 0.6 % (0-2.5); EOSINOPHIL# 0.1 X10e3 (0-0.7); EOSINOPHIL% 1.5 % (0.0-7.0); HEMATOCRIT 42.3 % (35.0-45.0); LYMPHOCYTE# 1.3 X10e3 (1.0-3.5); LYMPHOCYTE% 18.4 % (17.0-45.0); MEAN CELL VOLUME 85.6 FL (83-96); MEAN CORPUSCULAR HEMOGLOBIN 28.1 PG (28-34); MEAN CORPUSCULAR HGB CONC 32.8 g/dL (30-36); MEAN PLATELET VOLUME 8.2 FL (6.5-11.5); MONOCYTE# 0.5 X10e3 (0-1.0); MONOCYTE% 6.9 % (3.0-12.0); NEUTROPHIL# 5.2 X10e3 (1.5-7.1); NEUTROPHIL% 72.6 % (40-75); PLATELET COUNT 139 X10e3 (140-420); RED BLOOD COUNT 4.94 X10e (3.90-5.30); RED CELL DISTRIBUTION WIDTH 15.2 % (11.0-15.5); WHITE BLOOD COUNT 7.1 X10e3 (4.0-10.5)
[2017-05-26 14:40] LABS: HEMOGLOBIN 13.9 gm/dL (12.0-16.0)
[2017-05-26 14:41] LABS: DIFF IND NO
[2017-05-27 08:16] LABS: HEMATOCRIT 26.6 % (35.0-45.0); MEAN CELL VOLUME 85.2 FL (83-96); MEAN CORPUSCULAR HEMOGLOBIN 27.8 PG (28-34); MEAN CORPUSCULAR HGB CONC 32.7 g/dL (30-36); MEAN PLATELET VOLUME 8.1 FL (6.5-11.5); RED BLOOD COUNT 3.13 X10e (3.90-5.30); RED CELL DISTRIBUTION WIDTH 15.3 % (11.0-15.5)
[2017-05-27 08:31] LABS: HEMOGLOBIN 8.7 gm/dL (12.0-16.0); WHITE BLOOD COUNT 12.5 X10e3 (4.0-10.5)
[2017-05-27 08:50] LABS: BUN/CREATININE RATIO 24.28; CALCIUM SERUM 8.1 mg/dL (8.4-10.2); CREATININE SERUM 0.7 mg/dL (0.6-1.4); GLOM FILT RATE Estimated 106.1 mL/min (>60); MAGNESIUM 1.9 mg/dL (1.6-3.0); POTASSIUM 4.1 mmol/L (3.5-5.1)
[2017-05-28 00:55] LABS: CALCIUM (PTHINTACT) 7.6 mg/dL (8.6-10.4)
[2017-05-28 02:32] LABS: HEMATOCRIT 27.6 % (35.0-45.0); HEMOGLOBIN 8.9 gm/dL (12.0-16.0); MEAN CELL VOLUME 86.3 FL (83-96); MEAN CORPUSCULAR HEMOGLOBIN 27.7 PG (28-34); MEAN CORPUSCULAR HGB CONC 32.1 g/dL (30-36); RED BLOOD COUNT 3.2 X10e (3.90-5.30); RED CELL DISTRIBUTION WIDTH 15.1 % (11.0-15.5); WHITE BLOOD COUNT 12.3 X10e3 (4.0-10.5)
[2017-05-28 02:56] LABS: BUN/CREATININE RATIO 21.42; CREATININE SERUM 0.7 mg/dL (0.6-1.4); GLOM FILT RATE Estimated 106.1 mL/min (>60); MAGNESIUM 1.6 mg/dL (1.6-3.0); POTASSIUM 4.1 mmol/L (3.5-5.1)
[2017-05-29 08:36] LABS: BUN/CREATININE RATIO 18.57; CALCIUM SERUM 8.5 mg/dL (8.4-10.2); CREATININE SERUM 0.7 mg/dL (0.6-1.4); GLOM FILT RATE Estimated 106.1 mL/min (>60); MAGNESIUM 1.9 mg/dL (1.6-3.0); PHOSPHOROUS 3.8 mg/dL (2.5-4.6); POTASSIUM 4.5 mmol/L (3.5-5.1)
[2017-05-30 03:16] LABS: HEMATOCRIT 26.3 % (35.0-45.0); HEMOGLOBIN 8.8 gm/dL (12.0-16.0); MEAN CELL VOLUME 87.4 FL (83-96); MEAN CORPUSCULAR HEMOGLOBIN 29.1 PG (28-34); MEAN CORPUSCULAR HGB CONC 33.3 g/dL (30-36); MEAN PLATELET VOLUME 7.8 FL (6.5-11.5); RED BLOOD COUNT 3.01 X10e (3.90-5.30); WHITE BLOOD COUNT 13.5 X10e3 (4.0-10.5)
[2017-05-30 03:39] LABS: BUN/CREATININE RATIO 24.28; CALCIUM SERUM 8.4 mg/dL (8.4-10.2); CREATININE SERUM 0.7 mg/dL (0.6-1.4); GLOM FILT RATE Estimated 106.1 mL/min (>60); MAGNESIUM 1.8 mg/dL (1.6-3.0); POTASSIUM 4.4 mmol/L (3.5-5.1)
[2017-05-31 11:13] LABS: MAGNESIUM 1.9 mg/dL (1.6-3.0); POTASSIUM 4.2 mmol/L (3.5-5.1)
[2017-06-01 07:58] LABS: ALBUMIN SERUM 2.5 g/dL (3.5-5.0); BUN/CREATININE RATIO 22.22; CREATININE SERUM 0.9 mg/dL (0.6-1.4); GLOM FILT RATE Estimated 78.4 mL/min (>60); MAGNESIUM 1.8 mg/dL (1.6-3.0); PHOSPHOROUS 3.9 mg/dL (2.5-4.6); POTASSIUM 4.5 mmol/L (3.5-5.1)
[2017-06-02 03:39] LABS: HEMATOCRIT 27.5 % (35.0-45.0); MEAN CORPUSCULAR HEMOGLOBIN 28.8 PG (28-34); MEAN CORPUSCULAR HGB CONC 32.8 g/dL (30-36); RED BLOOD COUNT 3.13 X10e (3.90-5.30); RED CELL DISTRIBUTION WIDTH 15.8 % (11.0-15.5); WHITE BLOOD COUNT 11.1 X10e3 (4.0-10.5)
[2017-06-02 17:18] LABS: HEMATOCRIT 25.1 % (35.0-45.0); HEMOGLOBIN 8.2 gm/dL (12.0-16.0); MEAN CORPUSCULAR HEMOGLOBIN 29.2 PG (28-34); MEAN CORPUSCULAR HGB CONC 32.8 g/dL (30-36); MEAN PLATELET VOLUME 8.3 FL (6.5-11.5); RED BLOOD COUNT 2.82 X10e (3.90-5.30); RED CELL DISTRIBUTION WIDTH 15.9 % (11.0-15.5); WHITE BLOOD COUNT 10.3 X10e3 (4.0-10.5)
[2017-06-02 17:33] LABS: PARTIAL THROMBOPLASTIN TIME 24.4 SECONDS (23.5-31.3); PROTHROMBIN TIME (PATIENT) 10.8 SECONDS (10.0-11.7)
[2017-06-03 08:28] LABS: HEMATOCRIT 27.3 % (35.0-45.0)
[2017-07-30] MEDS ORDERED: TIROSINT50 MCG PO (00:24)
[2017-07-30] MEDS ORDERED: HYDRALAZINE HCL50 MG PO (00:24)
[2017-07-30] MEDS ORDERED: K-LOR HOSPITAL20 ME1 PO (00:25)
[2017-07-30] MEDS ORDERED: HEMOCYTE324 MG PO (00:25)
[2017-07-30] MEDS ORDERED: DOK100 MG PO (00:25)
[2017-07-30] MEDS ORDERED: CALCITRIOL0.25 MCG PO (00:25)
[2017-07-30] MEDS ORDERED: PROAIR RESPICL90 MCG INH (00:26)
[2017-07-30] MEDS ORDERED: ZYLOPRIM100 MG PO (00:26)
[2017-07-30] MEDS ORDERED: GLIPIZIDE10 MG PO (00:27)
[2017-07-30] MEDS ORDERED: AMLODIPINE BESYL5 MG PO (00:27)
[2017-07-30] MEDS ORDERED: GABAPENTIN400 M2 PO (00:27)
[2017-07-30] MEDS ORDERED: COREG12.5 MG PO (00:27)
[2017-07-30] MEDS ORDERED: FUROSEMIDE40 MG PO (00:27)
[2017-07-30] MEDS ORDERED: HYDROCODON-ACE1 EAC5 PO (00:28)
[2017-07-30] MEDS ORDERED: LEVEMIR100 UNITS/ SUBQ (00:29)
[2017-07-30] MEDS ORDERED: CLONAZEPAM2 MG PO (00:29)
[2017-07-30] MEDS ORDERED: NOVOLOG100 UNIT/1 SUBQ (00:29)
== END 2017-06-03 16:38 | DRG 571 ==
LOC: CED 12:52 → C4C 17:00 → CED 18:30 → C4C 18:30
PROVIDERS: Family Medicine; Internal Medicine; Internal Medicine Cardiovascular Disease; Internal Medicine Nephrology; Nurse Practitioner; Student in an Organized Health Care Education/Training Program; Surgery
PROC: 0JB90ZZ Excision of Buttock Subcutaneous Tissue and Fascia, Open Approach (ICD-10-PCS; principal; 2017-05-24 09:00)
PROC: 30233N1 Transfusion of Nonautologous Red Blood Cells into Peripheral Vein, Percutaneous Approach (ICD-10-PCS; 2017-05-26)
DX: L02.31 Cutaneous abscess of buttock (principal); N17.9 Acute kidney failure, unspecified; J96.10 Chronic respiratory failure, unspecified whether with hypoxia or hypercapnia; I11.0 Hypertensive heart disease with heart failure; I82.402 Acute embolism and thrombosis of unspecified deep veins of left lower extremity; E11.628 Type 2 diabetes mellitus with other skin complications; L89.319 Pressure ulcer of right buttock, unspecified stage; I50.32 Chronic diastolic (congestive) heart failure; D62 Acute posthemorrhagic anemia; E11.65 Type 2 diabetes mellitus with hyperglycemia; L03.317 Cellulitis of buttock; Z79.4 Long term (current) use of insulin; E87.6 Hypokalemia; J44.9 Chronic obstructive pulmonary disease, unspecified; Z99.81 Dependence on supplemental oxygen; F17.210 Nicotine dependence, cigarettes, uncomplicated; Z89.511 Acquired absence of right leg below knee; R79.89 Other specified abnormal findings of blood chemistry; E78.5 Hyperlipidemia, unspecified; I25.10 Atherosclerotic heart disease of native coronary artery without angina pectoris; Z95.5 Presence of coronary angioplasty implant and graft; E03.9 Hypothyroidism, unspecified; M10.9 Gout, unspecified; I95.9 Hypotension, unspecified; K59.00 Constipation, unspecified; E21.3 Hyperparathyroidism, unspecified; R05 Cough; Z79.82 Long term (current) use of aspirin; Z91.018 Allergy to other foods; Z88.1 Allergy status to other antibiotic agents; Z88.8 Allergy status to other drugs, medicaments and biological substances
CPT/HCPCS: 36415; 71010; 74176; 76770; 80048; 80053; 80069; 80076; 80202; 81003; 82310; 82550; 82553; 82570; 82947; 83036; 83605; 83690; 83735; 83970; 84100; 84132; 84156; 84300; 84443; 84484; 85014; 85018; 85025; 85027; 85610; 85730; 86334; 86850; 86900; 86901; 86923; 87040; 87070; 87086; 87205; 88304; 88312; 89190; 93005; 93971; 94010; 94640; 94760; 96361; 96374; 97110; 97163; 97167; 97530; 97535; 99285; G8978-GP; G8979-GP; G8987-GO; G8988-GO; J1170; J1650; J1815; J1940; J2270; J2405; J2543; J3010; J3370; J3475; P9016

== ENCOUNTER 2017-07-01 13:40 | Inpatient (IN) | payer MEDICARE, OTHER ==
[~2017-07-01] VITALS: Ht 170.2 cm; Wt 89.9 kg
--- NOTE | ~2017-07-01 | DS ---
Unit #: [id number] #: [id number] Patient: ELIANA BOLDEN [id number] [address] [address] [id number] I MR#: [id number] NAME: ELIANA BOLDEN. ROOM: 341 Age: 66 Sex: F Admission Date: 07/01/2017 : 1950 Discharge Date: Attending Physician: Steffi Guaman M.D. Primary Care Physician: Compa Arango M.D. DISCHARGE SUMMARY DISCHARGE DIAGNOSES 1. Wvirl-fl-nudhnsc hypoxic respiratory failure. 2. Healthcare-associated pneumonia. 3. Sepsis, present on admission from pneumonia. 4. Recent right buttocks abscess, status post incision and drainage. Wound looks good. 5. Chronic obstructive pulmonary disease with exacerbation. 6. Diabetes mellitus type 2, uncontrolled. 7. Hypertension uncontrolled. 8. Hyperlipidemia. 9. Coronary artery disease. 10. Hypothyroidism. 11. Abdominal aortic aneurysm. 12. Gout. 13. History of intracranial aneurysm, status post clipping. 14. Smoking. 15. Healthcare-associated pneumonia, likely Gram-negative rods. 16. Hypokalemia. 17. Hemoptysis. CONSULTATIONS None. PROCEDURES None. DIAGNOSTIC STUDIES LAB DATA: Glucose 162, blood cultures negative, WBC 11.1, hemoglobin 11.2, platelets 363, sodium 136, potassium 3.6, creatinine 0.6. IMAGING: CT of the head shows history of prior MCA territory aneurysm coiling. Scattered chronic microvascular disease. No acute changes. Chest x-ray shows left basilar parenchymal opacity. ALLERGIES 1. Metoprolol. 2. Azithromycin. 3. Levofloxacin. 4. Pineapple. DISCHARGE MEDICATIONS 1. Albuterol two puffs inhalation four times daily. Unit #: [id number] #: [id number] Patient: ELIANA BOLDEN 2. DuoNebs nebulizer q.4 p.r.n. shortness of breath. 3. Prednisone tapering dose 20 mg p.o. daily for two days followed by 10 mg p.o. daily for two days and then stop. 4. Tylenol 650 q.6 p.r.n. pain. 5. Neurontin 100 p.o. b.i.d. 6. Klonopin 2 mg at bedtime p.r.n. sleep and anxiety. 7. Coreg 12.5 p.o. b.i.d. 8. Norvasc 5 mg p.o. b.i.d. 9. Colace 100 mg p.o. daily. 10. Ferrous gluconate 324 p.o. daily. 11. Allopurinol 100 mg p.o. daily. 12. Percocet 10 mg q.4 p.r.n. moderate to severe pain. 13. Augmentin 875 p.o. b.i.d. Stop date 07/09/2017. 14. Dakin's modified solution 1/4th strength apply topically as directed. 15. Potassium 20 mEq p.o. daily. 16. Glucotrol 10 mg p.o. b.i.d. 17. Synthroid 50 mcg p.o. daily. 18. Calcitriol 0.25 mcg p.o. daily. HOSPITALIZATION COURSE A 66 year old admitted because of shortness of breath. Wcfzz-kj-iridfni hypoxic respiratory failure from pneumonia. Currently she is back on 2 L. Continue with home O2. Pneumonia, healthcare associated, Gram negative. Patient was started on broad-spectrum antibiotics. Blood cultures negative. The patient will be discharged on Augmentin for a few more days. Diabetes mellitus type 2, uncontrolled secondary to Solu-Medrol. Adjusted her insulin. Continue with current insulin dose. Hypertension, uncontrolled. Increase her Norvasc and Coreg and added hydralazine. Recent right buttocks abscess, status post debridement and I/D. Wound looks clean. Continue the local wound care. COPD with exacerbation, started on IV Solu-Medrol, DuoNebs. Currently breathing better. Continue with prednisone tapering dose, DuoNebs. Patient will be discharged to rehab. Discharge time taken is 31 minutes. Dictated by... Viraj Ritchie/kristina TD: 07/07/2017 18:03 JOB #: [id number] Unit #: [id number] #: [id number] Patient: ELIANA BOLDEN DISCHARGE SUMMARY Page 1 of 1 X Steffi Guaman MD X DISCHARGE SUMMARY
--- NOTE | ~2017-07-01 | EKG ---
PATIENT: ELIANA BOLDEN UNIT #: [id number] Ventricular Rate: 98 BPM Atrial Rate: 98 BPM P-R Interval: 160 ms QRS Duration: 94 ms Q-T Interval: 374 ms QTC Calculation(Bezet): 477 ms P Mccammon: 40 degrees Calculated R Mccammon: -42 degrees Calculated T Mccammon: 6 degrees Diagnosis Line: Normal sinus rhythm Diagnosis Line: Left axis deviation Diagnosis Line: Abnormal ECG Diagnosis Line: When compared with ECG of 25-MAY-2017 06:52, Diagnosis Line: T wave amplitude has decreased in Lateral leads Diagnosis Line: Confirmed by JANAY LUCAS MD ([id number]) on 07/01/2017 Diagnosis Line: 7:28:02 PM INTERPRETING MD: LANCE BARAHONA
--- NOTE | ~2017-07-01 | CT71 ---
[facility]. [facility] A Service of [facility] & [facility] RADIOLOGY TEXT RESULTS PATIENT: ELIANA BOLDEN LOCATION: [facility] 341- : 52 UNIT #: [id number] AGE: [address]: Steffi Guaman MD SEX: F ORDER DR: [id number] [facility] [address] [place], [place] [address] [id number] MR#: [id number] #: [id number] NAME: ELIANA BOLDEN. : 1950 SEX: F STUDY DATE/TIME: 07/02/2017 17:56 UNIT: [address] ROOM: [employer] STUDY DESCRIPTION: CT Head Wo Contrast Attending Physician: Steffi Guaman M.D. Ordering Physician: Steffi Guaman M.D. Primary Care Physician: Compa Arango M.D. MEDICAL IMAGING REPORT This report is preliminary unless electronic signature is present EXAM Noncontrast CT head. DATE: 07/02/2017 HISTORY 66-year-old female with complaints of headache today. History of previous aneurysm coiling. Fever since 06/30/2017. Headache since 06/30/2017. COMPARISON Noncontrast CT head 02/28/2017. This CT exam was performed with one or more of the following radiation dose reduction techniques: automatic exposure control, adjustment of mA and/or kV according to patient size, and iterative reconstruction. FINDINGS Aneurysm coils are seen within the left middle cerebral artery territory creating beam-hardening artifact obscuring several of the images. These findings are unchanged from prior. Scattered hypodensities are seen within the deep white matter of the brain, consistent with the appearance of chronic microvascular disease, similar to previous exam. However, there is no CT evidence of acute or evolving infarct. Chronic-appearing lacunar infarct in the left basal ganglia. No intracranial hemorrhage, mass lesion, mass effect or midline shift. Dense bilateral vertebral artery calcifications, moderate intracranial coronary artery calcifications. No calvarial abnormality is identified. Paranasal sinuses and mastoid air cells are clear. IMPRESSION Signs of prior left MCA territory aneurysm coiling. Scattered chronic microvascular disease changes in the deep white matter with chronic STS. [facility] A Service of [facility] & [facility] RADIOLOGY TEXT RESULTS PATIENT: ELIANA BOLDEN LOCATION: A 341-01 : 52 UNIT #: [id number] AGE: [address]: Steffi Guaman MD SEX: F ORDER DR: lacunar infarct in the left basal ganglia, without significant change from 02/28/2017. No acute findings. Dictated by... Deepti Marshall M.D. THIS IS AN ELECTRONICALLY VERIFIED REPORT Deepti Marshall M.D. at 07/03/2017 8:54 AM JOHNNY/parvez TD: 07/03/2017 02:45 JOB #: [id number] MEDICAL IMAGING REPORT Page 1 of 1 COPY
--- NOTE | ~2017-07-01 | CR72 ---
[facility] A Service of [facility] & [facility] RADIOLOGY TEXT RESULTS PATIENT: ELIANA BOLDEN LOCATION: [facility] : 54 UNIT #: [id number] AGE: [address]: Ian Gray MD SEX: F ORDER DR: [id number] [facility] [address] [place], [place] [address] [id number] MR#: [id number] Acc #: [id number] NAME: ELIANA BOLDEN. : 1950 SEX: F STUDY DATE/TIME: 07/01/2017 14:31 UNIT: [facility] ROOM: STUDY DESCRIPTION: CR Chest Single View Portable Attending Physician: Ian Gray M.D. Ordering Physician: Ian Gray M.D. Primary Care Physician: Compa Arango M.D. MEDICAL IMAGING REPORT This report is preliminary unless electronic signature is present EXAM Portable chest HISTORY Chest pain, shortness of air x1 day, prior smoker. History of CHF. COMPARISON 06/01/2017 FINDINGS Portable view of the chest demonstrates left-sided volume loss with mild elevation of the left hemidiaphragm, and left basilar parenchymal opacity may represent a combination of atelectasis or infiltrate. Mild diffuse interstitial prominence may represent background fibrosis. Heart size within normal limits. Mediastinum unremarkable, except for minimal aortic atherosclerotic changes. Osseous structures show degenerative changes of the right shoulder. No pneumothorax. Dictated by... Brendan Ackerman M.D. THIS IS AN ELECTRONICALLY VERIFIED REPORT Brendan Ackerman M.D. at 07/01/2017 7:57 PM Dilan TD: 07/01/2017 16:09 JOB #: [id number] MEDICAL IMAGING REPORT Page 1 of 1 COPY
--- NOTE | ~2017-07-01 | HP ---
Unit #: [id number] #: [id number] Patient: ELIANA BOLDEN [id number] [address] [place], [place] [address] [id number] E MR#: [id number] NAME: ELIANA BOLDEN ROOM: Age: 66 Sex: F Admission Date: 07/01/2017 : 1950 Attending Physician: Ina Chung M.D. Primary Care Physician: Compa Arango M.D. HISTORY AND PHYSICAL CHIEF COMPLAINT Chest pain, short of breath. HISTORY OF PRESENT ILLNESS The patient is a 66-year-old female with a past medical history of chronic respiratory failure, COPD, right buttock abscess/cellulitis, diabetes, hypertension, hyperlipidemia, coronary artery disease, peripheral arterial disease, hypothyroidism, abdominal aortic aneurysm, gout, and intracranial aneurysm, who presented to the emergency department from rehab for evaluation of the above. The patient states that she started feeling bad yesterday. She has had productive cough and fever. Her oxygen saturation was 64%. She also reported left-sided chest pain. She was given Augmentin at the rehab facility. She was brought to the emergency department for further evaluation. In the emergency department, initial pulse and blood pressure were 91 and 121/61, respectively, and oxygen saturation was 92% on six liters. Chest x-ray shows left lower lobe infiltrate. Initial lactic acid was 1.8. She was given Solu-Medrol, as well as vancomycin and Zosyn in the emergency department. She is being admitted to [facility] for evaluation and further treatment. PAST MEDICAL HISTORY 1. Admission to [facility] May 23 through June 03, 2017, for right buttock cellulitis and abscess, status post incision and drainage. I do not see a wound culture in [facility]. She received Zosyn and vancomycin during the hospital course, but per the Discharge Summary, she was not discharged home on any antibiotics. 2. COPD. The patient has seen Dr. Castellano in the past. 3. Chronic respiratory failure on three liters of oxygen per nasal cannula. 4. Diabetes with hemoglobin A1c of 8.6 on December 27, 2016. 5. Hypertension. 6. Hyperlipidemia. 7. Coronary artery disease, status post cardiac stent placement. 8. Peripheral arterial disease, status post right cunnd-acg-ohzq amputation. 9. Hypothyroidism. 10. Diastolic dysfunction. The patient had an echocardiogram March 28, 2015, that showed an ejection fraction greater than 55% with moderate concentric left ventricular hypertrophy. Doppler flow pattern suggestive of impaired left ventricular relaxation. Unit #: [id number] #: [id number] Patient: ELIANA BOLDEN 11. Abdominal aortic aneurysm, status post surgery complicated by lower extremity paralysis. 12. Gout. 13. Intracranial aneurysm, status post clipping. PAST SURGICAL HISTORY 1. Cardiac stent placement. 2. Right iqbdh-onu-ycxt amputation. 3. Abdominal aortic aneurysm repair. 4. Intracranial aneurysm clip. 5. Carotid endarterectomy. 6. . SOCIAL HISTORY The patient lives alone. She is currently in rehab. She is in a wheelchair. She continues to smoke a few cigarettes daily. FAMILY HISTORY Notable for her mother having a myocardial infarction. ALLERGIES Metoprolol, Levaquin, pineapple. HOME MEDICATIONS 1. Zyloprim 100 mg daily. 2. Norvasc 5 mg daily. 3. Calcitriol 0.25 mcg daily. 4. Coreg 6.25 mg twice daily. 5. Lasix 40 mg twice daily. 6. Glipizide 10 mg twice daily. 7. Hydrocodone and acetaminophen 10/325 q.4 hours p.r.n. 8. Ventolin 2 puffs 4 times daily. 9. Lipitor 20 mg daily. 10. Ipratropium and albuterol q.4 hours p.r.n. 11. Clonazepam 2 mg at bedtime p.r.n. 12. Iron 325 mg daily. 13. Docusate 100 mg daily. 14. NovoLog FlexPen 8 units t.i.d. 15. Toujeo 10 units subcutaneous at bedtime. REVIEW OF SYSTEMS A complete review of systems is negative except as indicated in the HPI. PHYSICAL EXAMINATION VITAL SIGNS: Temperature is 98.1, pulse 91, respirations 26, blood pressure 121/61, oxygen saturation 92% on 6 liters. GENERAL: The patient is an female who is awake and alert, in no acute distress. HEENT: Head is atraumatic. Mucous membranes are moist. NECK: Supple. Trachea is midline. CARDIOVASCULAR: Regular rate and rhythm. LUNGS: Demonstrate scattered wheezes and rhonchi. Breathing is not labored with conversation. ABDOMEN: Soft and nontender with bowel sounds present in all four quadrants. EXTREMITIES: The right lower extremity has been previously amputated below the knee. There is no pedal edema involving the left lower extremity. Unit #: [id number] #: [id number] Patient: ELIANA BOLDEN NEUROLOGIC: The patient is awake and alert. She follows commands. She is oriented x3. PSYCHIATRIC: Mood and affect are normal. The patient is cooperative. SKIN: The right buttock demonstrates a bandage that is clean, dry, and intact. DIAGNOSTIC STUDIES LABORATORY: Lactic acid is 1.8. Troponin is less than 0.05. INR is 1.4. Complete blood count notable for white blood cell count of 15.8 and hemoglobin and hematocrit 10.2 and 32, respectively. Comprehensive metabolic panel notable for chloride of 99, CO2 of 32, glucose 213, calcium 8.2, alkaline phosphatase 108, and albumin is 3.1. IMAGING: Chest x-ray shows left lower lobe infiltrate. CARDIOLOGY: EKG shows normal sinus rhythm with a rate of 98 beats per minute. ASSESSMENT The patient is a 66-year-old female with: 1. Acute on chronic respiratory failure, hypoxic. 2. Healthcare-associated pneumonia. The patient received vancomycin and Zosyn in the emergency department. 3. Sepsis with initial lactic acid of 1.8. 4. Right buttock cellulitis/abscess, status post incision and drainage. 5. COPD exacerbation. The patient received Solu-Medrol in the emergency department. 6. Diabetes with hemoglobin A1c as noted above. 7. Hypertension. 8. Hyperlipidemia. 9. Coronary artery disease. 10. Peripheral arterial disease. 11. Hypothyroidism. 12. Abdominal aortic aneurysm. 13. Gout. 14. Intracranial aneurysm, status post clipping. 15. Tobacco abuse. PLAN 1. Admit to intermediate level. 2. Healthy-heart, consistent carb diet. 3. Bedrest. 4. Fall precautions. 5. Supplemental oxygen. 6. P.r.n. Tylenol. 7. Blood cultures x2. 8. Sputum culture and sensitivity. 9. Procalcitonin level. 10. Streptococcal and legionella urine antigens. 11. Vancomycin IV, tobramycin IV, and Zosyn IV for healthcare-associated pneumonia pending further workup. 12. DuoNebs q.4 hours. 13. Solu-Medrol 80 mg IV q.12 hours. 14. Sepsis protocol. 15. Mucinex. 16. Serial cardiac enzymes. 17. Wound care consult regarding buttock wound. 18. Repeat labs in the morning. Unit #: [id number] #: [id number] Patient: ELIANA BOLDEN 19. Protonix for GI prophylaxis since the patient will be on Solu-Medrol. 20. Additional workup and consultants based on above. 1. Dictated by Viraj Matias/rafi TD: 07/01/2017 19:33 JOB #: [id number] HISTORY AND PHYSICAL Page 1 of 1 X Brianna Mathews MD X HISTORY AND PHYSICAL
[~2017-07-01 13:40] MED LIST changes: +CLONAZEPAM2 MG PO; +FERRO-TIME325 MG PO
[2017-07-01 14:48] LABS: BASOPHIL# 0.2 X10e3 (0-0.3); EOSINOPHIL# 0.3 X10e3 (0-0.7); EOSINOPHIL% 1.7 % (0.0-7.0); HEMOGLOBIN 10.2 gm/dL (12.0-16.0); LYMPHOCYTE# 2.2 X10e3 (1.0-3.5); LYMPHOCYTE% 13.8 % (17.0-45.0); MEAN CELL VOLUME 91.1 FL (83-96); MEAN CORPUSCULAR HEMOGLOBIN 28.9 PG (28-34); MEAN CORPUSCULAR HGB CONC 31.7 g/dL (30-36); MEAN PLATELET VOLUME 9.3 FL (6.5-11.5); MONOCYTE# 0.8 X10e3 (0-1.0); MONOCYTE% 4.8 % (3.0-12.0); NEUTROPHIL# 12.4 X10e3 (1.5-7.1); NEUTROPHIL% 78.7 % (40-75); PLATELET COUNT 345 X10e3 (140-420); RED BLOOD COUNT 3.52 X10e (3.90-5.30); RED CELL DISTRIBUTION WIDTH 18.3 % (11.0-15.5); WHITE BLOOD COUNT 15.8 X10e3 (4.0-10.5)
[2017-07-01 15:00] LABS: DIFF IND YES
[2017-07-01] MEDS ORDERED: COREG6.25 MG PO (15:11)
[2017-07-01] MEDS ORDERED: CALCITRIOL0.25 MC1 PO (15:11)
[2017-07-01] MEDS ORDERED: HYDROCODON-ACE1 EAC5 PO (15:11)
[2017-07-01] MEDS ORDERED: ZYLOPRIM100 MG PO (15:11)
[2017-07-01] MEDS ORDERED: GLIPIZIDE10 MG PO (15:11)
[2017-07-01] MEDS ORDERED: NORVASC PO (15:11)
[2017-07-01] MEDS ORDERED: LASIX20 MG PO (15:11)
[2017-07-01] MEDS ORDERED: ALBUTEROL17 GM INH (15:12)
[2017-07-01] MEDS ORDERED: IPRATR-ALBUTEROL3 ML NEB (15:12)
[2017-07-01] MEDS ORDERED: LIPITOR20 MG PO (15:12)
[2017-07-01] MEDS ORDERED: CLONAZEPAM2 MG PO (15:12)
[2017-07-01 15:19] LABS: POC - CKMB <1.0 ng/mL (0.0-7.9); POC - TROPONIN <0.05 ng/mL (<=0.05)
[2017-07-01] MEDS ORDERED: COL-RITE50 MG PO (15:20)
[2017-07-01] MEDS ORDERED: NOVOLOG FL100 UNIT/1 SUBQ (15:20)
[2017-07-01] MEDS ORDERED: FERRO-TIME325 MG PO (15:20)
[2017-07-01] MEDS ORDERED: TOUJEO SOL300 UNIT/1 SUBQ (15:20)
[2017-07-01 15:21] LABS: INR 1.4; PARTIAL THROMBOPLASTIN TIME 33.3 SECONDS (23.5-31.3); PROTHROMBIN TIME (PATIENT) 14.9 SECONDS (10.0-11.7)
[2017-07-01 16:06] LABS: ANISOCYTOSIS MOD; PLATELET ESTIMATE NORMAL (NORMAL); POIKILOCYTOSIS MOD
[2017-07-01 16:49] LABS: ALBUMIN SERUM 3.1 g/dL (3.5-5.0); ALKALINE PHOSPHATASE 108 U/L (32-92); ALT (SGPT) 17 U/L (10-40); AST (SGOT) 23 U/L (10-42); BILIRUBIN, DIRECT <0.1 mg/dL (0.0-0.2); BILIRUBIN,INDIRECT 0.8 mg/dL (0.0-0.9); BILIRUBIN,TOTAL 0.9 mg/dL (0.2-2.0); BLOOD UREA NITROGEN 14 mg/dL (9-23); CALCIUM SERUM 8.2 mg/dL (8.4-10.2); CARBON DIOXIDE 32 mmol/L (22-31); CHLORIDE 99 mmol/L (100-111); GLUCOSE FASTING 213 mg/dL (70-110); POTASSIUM 3.7 mmol/L (3.5-5.1); PROTEIN TOTAL SERUM 6.8 g/dL (6.0-8.3); SODIUM 140 mmol/L (135-145)
[2017-07-01 20:05] LABS: URINE SOURCE CLEAN CATCH
[2017-07-01 20:23] LABS: URINE APPEARANCE CLEAR; URINE BILIRUBIN NEG (NEG); URINE BLOOD NEG (NEG); URINE COLOR YELLOW; URINE GLUCOSE NEG (NEG); URINE KETONE NEG (NEG); URINE LEUKOCYTE ESTERASE NEG (NEG); URINE NITRATE NEG (NEG); URINE PH 5.5 (5-8); URINE PROTEIN 2+ (NEG); URINE SPECIFIC GRAVITY 1.025 (1.003-1.035); URINE UROBILINOGEN 0.2 MG/DL (NEG)
[2017-07-01 20:43] LABS: CULTURE INDICATED? NO
[2017-07-01 22:28] LABS: %MB 1.6 % (0.0-4.0)
[2017-07-02 07:19] LABS: HEMATOCRIT 33.9 % (35.0-45.0); HEMOGLOBIN 10.7 gm/dL (12.0-16.0); MEAN CELL VOLUME 91.9 FL (83-96); MEAN CORPUSCULAR HGB CONC 31.6 g/dL (30-36); MEAN PLATELET VOLUME 9.6 FL (6.5-11.5); RED BLOOD COUNT 3.69 X10e (3.90-5.30); RED CELL DISTRIBUTION WIDTH 17.4 % (11.0-15.5); WHITE BLOOD COUNT 13.3 X10e3 (4.0-10.5)
[2017-07-02 07:44] LABS: ALBUMIN SERUM 3.3 g/dL (3.5-5.0); BILIRUBIN,TOTAL 0.9 mg/dL (0.2-2.0); BUN/CREATININE RATIO 22.5; CALCIUM SERUM 8.9 mg/dL (8.4-10.2); CREATININE SERUM 0.8 mg/dL (0.6-1.4); GLOM FILT RATE Estimated 90.4 mL/min (>60); POTASSIUM 3.8 mmol/L (3.5-5.1); PROTEIN TOTAL SERUM 7.7 g/dL (6.0-8.3)
[2017-07-02] MEDS ORDERED: SYNTHROID PO (08:23)
[2017-07-02 14:51] LABS: LEGIONELLA AG URINE NEG (NEG)
[2017-07-03 05:42] LABS: HEMATOCRIT 33.1 % (35.0-45.0); HEMOGLOBIN 10.5 gm/dL (12.0-16.0); MEAN CELL VOLUME 91.3 FL (83-96); MEAN CORPUSCULAR HEMOGLOBIN 28.8 PG (28-34); MEAN CORPUSCULAR HGB CONC 31.5 g/dL (30-36); MEAN PLATELET VOLUME 9.9 FL (6.5-11.5); RED BLOOD COUNT 3.63 X10e (3.90-5.30); RED CELL DISTRIBUTION WIDTH 16.9 % (11.0-15.5)
[2017-07-03 06:29] LABS: ALBUMIN SERUM 3.2 g/dL (3.5-5.0); BILIRUBIN,TOTAL 0.7 mg/dL (0.2-2.0); BUN/CREATININE RATIO 31.66; CALCIUM SERUM 9.3 mg/dL (8.4-10.2); CREATININE SERUM 0.6 mg/dL (0.6-1.4); GLOM FILT RATE Estimated 111.6 mL/min (>60); POTASSIUM 3.7 mmol/L (3.5-5.1); PROTEIN TOTAL SERUM 7.4 g/dL (6.0-8.3)
[2017-07-04 07:00] LABS: HEMATOCRIT 34.2 % (35.0-45.0); HEMOGLOBIN 10.9 gm/dL (12.0-16.0); MEAN CELL VOLUME 90.7 FL (83-96); MEAN CORPUSCULAR HEMOGLOBIN 28.8 PG (28-34); MEAN CORPUSCULAR HGB CONC 31.7 g/dL (30-36); MEAN PLATELET VOLUME 9.9 FL (6.5-11.5); RED BLOOD COUNT 3.78 X10e (3.90-5.30); RED CELL DISTRIBUTION WIDTH 16.6 % (11.0-15.5); WHITE BLOOD COUNT 12.8 X10e3 (4.0-10.5)
[2017-07-04 07:28] LABS: CREATININE SERUM 0.6 mg/dL (0.6-1.4); GLOM FILT RATE Estimated 111.6 mL/min (>60); POTASSIUM 3.3 mmol/L (3.5-5.1)
[2017-07-05 06:07] LABS: HEMATOCRIT 34.2 % (35.0-45.0); HEMOGLOBIN 10.8 gm/dL (12.0-16.0); MEAN CELL VOLUME 90.6 FL (83-96); MEAN CORPUSCULAR HEMOGLOBIN 28.7 PG (28-34); MEAN CORPUSCULAR HGB CONC 31.6 g/dL (30-36); MEAN PLATELET VOLUME 9.4 FL (6.5-11.5); RED BLOOD COUNT 3.77 X10e (3.90-5.30); RED CELL DISTRIBUTION WIDTH 16.2 % (11.0-15.5); WHITE BLOOD COUNT 11.6 X10e3 (4.0-10.5)
[2017-07-05 06:38] LABS: BUN/CREATININE RATIO 46.66; CREATININE SERUM 0.6 mg/dL (0.6-1.4); GLOM FILT RATE Estimated 111.6 mL/min (>60); POTASSIUM 3.6 mmol/L (3.5-5.1)
[2017-07-06 08:43] LABS: HEMATOCRIT 35.8 % (35.0-45.0); HEMOGLOBIN 11.3 gm/dL (12.0-16.0); MEAN CELL VOLUME 90.2 FL (83-96); MEAN CORPUSCULAR HEMOGLOBIN 28.6 PG (28-34); MEAN CORPUSCULAR HGB CONC 31.7 g/dL (30-36); MEAN PLATELET VOLUME 9.5 FL (6.5-11.5); RED BLOOD COUNT 3.97 X10e (3.90-5.30); RED CELL DISTRIBUTION WIDTH 16.2 % (11.0-15.5); WHITE BLOOD COUNT 11.1 X10e3 (4.0-10.5)
[2017-07-30] MEDS ORDERED: HYDRALAZINE HCL50 MG PO (00:24)
[2017-07-30] MEDS ORDERED: TIROSINT50 MCG PO (00:24)
[2017-07-30] MEDS ORDERED: K-LOR HOSPITAL20 ME1 PO (00:25)
[2017-07-30] MEDS ORDERED: CALCITRIOL0.25 MCG PO (00:25)
[2017-07-30] MEDS ORDERED: HEMOCYTE324 MG PO (00:25)
[2017-07-30] MEDS ORDERED: DOK100 MG PO (00:25)
[2017-07-30] MEDS ORDERED: PROAIR RESPICL90 MCG INH (00:26)
[2017-07-30] MEDS ORDERED: ZYLOPRIM100 MG PO (00:26)
[2017-07-30] MEDS ORDERED: AMLODIPINE BESYL5 MG PO (00:27)
[2017-07-30] MEDS ORDERED: FUROSEMIDE40 MG PO (00:27)
[2017-07-30] MEDS ORDERED: COREG12.5 MG PO (00:27)
[2017-07-30] MEDS ORDERED: GABAPENTIN400 M2 PO (00:27)
[2017-07-30] MEDS ORDERED: GLIPIZIDE10 MG PO (00:27)
[2017-07-30] MEDS ORDERED: HYDROCODON-ACE1 EAC5 PO (00:28)
[2017-07-30] MEDS ORDERED: LEVEMIR100 UNITS/ SUBQ (00:29)
[2017-07-30] MEDS ORDERED: NOVOLOG100 UNIT/1 SUBQ (00:29)
[2017-07-30] MEDS ORDERED: CLONAZEPAM2 MG PO (00:29)
== END 2017-07-07 19:36 | DRG 871 ==
LOC: CED 13:40 → C3A PCU 17:05 → CEDOF 17:05 → C3A PCU 23:49 → CED 23:49 → CEDOF 07-02 02:52 → C3A PCU 07-02 02:52
PROVIDERS: Emergency Medicine; Family Medicine; Internal Medicine
DX: A41.9 Sepsis, unspecified organism (principal); J15.6 Pneumonia due to other Gram-negative bacteria; J96.21 Acute and chronic respiratory failure with hypoxia; I11.0 Hypertensive heart disease with heart failure; I50.32 Chronic diastolic (congestive) heart failure; J44.1 Chronic obstructive pulmonary disease with (acute) exacerbation; R04.2 Hemoptysis; L02.31 Cutaneous abscess of buttock; F17.210 Nicotine dependence, cigarettes, uncomplicated; Y95 Nosocomial condition; E11.65 Type 2 diabetes mellitus with hyperglycemia; Z79.84 Long term (current) use of oral hypoglycemic drugs; E78.5 Hyperlipidemia, unspecified; I25.10 Atherosclerotic heart disease of native coronary artery without angina pectoris; Z95.5 Presence of coronary angioplasty implant and graft; E03.9 Hypothyroidism, unspecified; M10.9 Gout, unspecified; I71.4 Abdominal aortic aneurysm, without rupture; E87.6 Hypokalemia; Z89.511 Acquired absence of right leg below knee; I73.9 Peripheral vascular disease, unspecified; Z88.1 Allergy status to other antibiotic agents; Z88.8 Allergy status to other drugs, medicaments and biological substances; R04.0 Epistaxis; G89.29 Other chronic pain
CPT/HCPCS: 36415; 70450; 71010; 80048; 80053; 80076; 80200; 80202; 81003; 82308; 82550; 82553; 82947; 83605; 84484; 85025; 85027; 85610; 85730; 87040; 87070; 87077; 87186; 87205; 87449; 87899; 93005; 94640; 94760; 96374; 97162; 97167; 97530; 99285; G8978-GP; G8979-GP; G8987-GO; G8988-GO; J0360; J1170; J1815; J2543; J2920; J2930; J3260; J3370